=== PATIENT | female | born 1985 | race Caucasian/White ===

== ENCOUNTER → 2017-05-06 | Outpatient (CLI) | payer OTHER ==
[~2017-05-06] MED LIST: GLGKIT SQ; LEVO100T7 PO; LVMI PO; NVLGI SC
--- NOTE | 2017-05-06 12:14 | DIAGNOSTIC IMAGING REPORT ---
CHEST 2 VIEWS ROUTINE CLINICAL HISTORY: COARSE/CRACKLES L BASE dyspnea COMPARISON STUDY: 08/10/2013 FINDINGS: The bones soft tissues and hemidiaphragms are normal. The cardiomediastinal silhouette is normal. The lungs are clear. The pulmonary vasculature is normal. IMPRESSION: Negative chest. The above report was generated using voice recognition software. It may contain grammatical, syntax or spelling errors. Electronically signed by: Chadwick Hernandez M.D. 05/06/2017 12:13 PM Dictated Date/Time: 05/06/2017 12:13 PM
[2017-05-06 13:25] LABS: BASO % 0.6 %; BASO ABS # 0.03 K/uL (0-0.2); COMPLETE YES; EOS % 2.4 %; HEMATOCRIT 49.7 % (37-47); IG% 0.4 %; LYMPH % 34.5 %; LYMPH ABS # 1.71 K/uL (1.2-3.4); MEAN CELL VOLUME 96.9 fL (80-100); MEAN CORPUSCULAR HEMOGLOBIN 33.9 pg (25-34); MEAN PLATELET VOLUME 12.5 fL (7.4-10.4); MONO % 6.9 %; NEUT % 55.2 %; PLATELET COUNT 261 K/uL (130-400); RED BLOOD COUNT 5.13 M/uL (4.2-5.4); WHITE BLOOD COUNT 4.96 K/uL (4.8-10.8)
[2017-05-06 13:47] LABS: ESTIMATED AVERAGE GLUCOSE 275 mg/dl; HA1C FLAG Normal (Normal)
[2017-05-06 14:12] LABS: ALT/SGPT 21 U/L (12-78); AST/SGOT 8 U/L (15-37); BLOOD UREA NITROGEN 20 mg/dl (7-18); BUN/CREATININE RATIO 21.5 (10-20); CALCIUM 9.5 mg/dl (8.5-10.1); CARBON DIOXIDE 16 mmol/L (21-32); CHLORIDE 104 mmol/L (98-107); CHOLESTEROL 193 mg/dl (0-200); CREATININE 0.92 mg/dl (0.60-1.20); GLUCOSE 336 mg/dl (70-99); POTASSIUM 5.1 mmol/L (3.5-5.1); SODIUM 134 mmol/L (136-145); TRIGLYCERIDES 93 mg/dl (0-150); VERY LOW DENSITY LIPOPROT CALC 19 mg/dl
[2017-05-06 14:16] LABS: ALB/GLOB RATIO 1.2 (0.9-2); ALKALINE PHOSPHATASE 71 U/L (45-117); CHOLESTEROL/HDL RATIO 2.4; HDL CHOLESTEROL 79 mg/dl; LDL CHOLESTEROL CALCULATED 95 mg/dl
[2017-05-06 14:24] LABS: THYROID STIMULATING HORMONE 0.796 uIu/ml (0.300-4.500)
== END | disposition home or self-care (01) ==
LOC: C.RAD1850 11:30
PROVIDERS: ATTEND Nurse Practitioner
DX: E11.9 Type 2 diabetes mellitus without complications (principal); E03.9 Hypothyroidism, unspecified; F41.9 Anxiety disorder, unspecified; F32.9 Major depressive disorder, single episode, unspecified; G47.00 Insomnia, unspecified

== ENCOUNTER → 2017-05-11 | Outpatient (CLI) | payer OTHER ==
[2017-05-11 12:16] LABS: URINE APPEARANCE CLEAR (CLEAR); URINE BILIRUBIN NEG (NEG); URINE COLOR YELLOW; URINE NITRITE NEG (NEG); URINE SPECIFIC GRAVITY 1.012 (1.000-1.030); UROBILINOGEN NEG (NEG)
[2017-05-11 12:27] LABS: MANUAL MICROSCOPIC REQUIRED? NO; REVIEW REQ? NO
[2017-05-11 12:42] LABS: ALB/GLOB RATIO 1.2 (0.9-2); ALKALINE PHOSPHATASE 56 U/L (45-117); ALT/SGPT 19 U/L (12-78); AST/SGOT 11 U/L (15-37); BETA-HYDROXYBUTYRATE 1.33 mg/dL (0.2-2.81); BLOOD UREA NITROGEN 13 mg/dl (7-18); BUN/CREATININE RATIO 20.2 (10-20); CALCIUM 8.6 mg/dl (8.5-10.1); CARBON DIOXIDE 26 mmol/L (21-32); CHLORIDE 109 mmol/L (98-107); CREATININE 0.63 mg/dl (0.60-1.20); GLUCOSE 175 mg/dl (70-99); POTASSIUM 4.1 mmol/L (3.5-5.1); SODIUM 140 mmol/L (136-145)
--- NOTE | 2017-05-13 06:48 | CODING QUERY NO DIAGNOSIS ---
TREATMENT RENDERED WITHOUT A DIAGNOSIS To promote full compliance with coding requirements relating to patient care, physician participation is requested in all cases of engraver wood uncertainty. Please assist us with providing a diagnosis/symptom for the test(s) below: A diagnosis/symptom was not documented on your Order. A valid diagnosis/symptom is required to bill all insurances. Please remember that we are unable to code a diagnosis of rule out, probable, possible, questionable, or suspected. Tests that require a diagnosis: DOS 05/11 * CMP DIAGNOSIS: * Urinalysis DIAGNOSIS: * [id number] DIAGNOSIS: Provider Signature: Date: Thank you Rosy Dubon Health Information Management Once completed, please kindly fax back to [phone] For questions please call [phone]
== END | disposition home or self-care (01) ==
LOC: C.LAB1850 11:44
PROVIDERS: ATTEND Nurse Practitioner
DX: E10.65 Type 1 diabetes mellitus with hyperglycemia (principal); E10.10 Type 1 diabetes mellitus with ketoacidosis without coma

== ENCOUNTER → 2017-07-10 | Outpatient (CLI) | payer OTHER ==
[2017-07-10 18:01] LABS: ALT/SGPT 16 U/L (12-78); BLOOD UREA NITROGEN 12 mg/dl (7-18); BUN/CREATININE RATIO 16.8 (10-20); CALCIUM 9.1 mg/dl (8.5-10.1); CARBON DIOXIDE 23 mmol/L (21-32); CHLORIDE 108 mmol/L (98-107); CHOLESTEROL 175 mg/dl (0-200); CREATININE 0.71 mg/dl (0.60-1.20); GLUCOSE 111 mg/dl (70-99); SODIUM 141 mmol/L (136-145)
[2017-07-10 18:11] LABS: ALB/GLOB RATIO 1.2 (0.9-2); ALKALINE PHOSPHATASE 56 U/L (45-117); AST/SGOT 13 U/L (15-37); CHOLESTEROL/HDL RATIO 2.4; HDL CHOLESTEROL 73 mg/dl; LDL CHOLESTEROL CALCULATED 83 mg/dl; THYROID STIMULATING HORMONE 0.043 uIu/ml (0.300-4.500); TRIGLYCERIDES 93 mg/dl (0-150); VERY LOW DENSITY LIPOPROT CALC 19 mg/dl
[2017-07-11 07:23] LABS: ESTIMATED AVERAGE GLUCOSE 160 mg/dl; HA1C FLAG Normal (Normal)
== END | disposition home or self-care (01) ==
LOC: C.LAB1850 17:04
PROVIDERS: ATTEND Nurse Practitioner Adult Health
DX: E11.9 Type 2 diabetes mellitus without complications (principal); E03.9 Hypothyroidism, unspecified

== ENCOUNTER 2017-11-11 13:28 | Inpatient (IN) | payer OTHER ==
[~2017-11-11] VITALS: Ht 162.6 cm; Wt 47.3 kg
[2017-11-11] MEDS ORDERED: SERT-234 PO (14:14)
[2017-11-11] MEDS ORDERED: NVLRB SC (14:15)
[2017-11-11] MEDS ORDERED: SODIUM CHLORIDE 0.9% 1000ML 1,000 ML IV STA (14:20)
[2017-11-11 14:41] LABS: BASO % 0.2 %; BASO ABS # 0.01 K/uL (0-0.2); EOS % 3.7 %; EOS ABS # 0.17 K/uL (0-0.5); HEMATOCRIT 46.4 % (37-47); HEMOGLOBIN 16.6 g/dL (12.0-16.0); IG# 0.02 K/uL (0.00-0.02); LYMPH % 33.3 %; LYMPH ABS # 1.55 K/uL (1.2-3.4); MEAN CELL VOLUME 99.1 fL (80-100); MEAN CORPUSCULAR HEMOGLOBIN 35.5 pg (25-34); MEAN CORPUSCULAR HGB CONC 35.8 g/dl (32-36); MEAN PLATELET VOLUME 11.6 fL (7.4-10.4); MONO % 8.6 %; NEUT % 53.8 %; PLATELET COUNT 208 K/uL (130-400); RED CELL DISTRIBUTION WIDTH CV 12.7 % (11.5-14.5); RED CELL DISTRIBUTION WIDTH SD 45.8 fL (36.4-46.3); WHITE BLOOD COUNT 4.65 K/uL (4.8-10.8)
[2017-11-11 15:11] LABS: ALBUMIN 3.8 gm/dl (3.4-5.0); CALCIUM 8.7 mg/dl (8.5-10.1); CREATININE 1.03 mg/dl (0.60-1.20); POTASSIUM 3.9 mmol/L (3.5-5.1)
[2017-11-11 15:16] LABS: TOTAL PROTEIN 7.7 gm/dl (6.4-8.2)
--- NOTE | 2017-11-11 15:20 | EMERGENCY ROOM VISIT NOTE ---
History Report prepared by Amanda: Thong Aldrich Under the Supervision of: Dr. Jass Piña M.D. First contact with patient: 13:50 Chief Complaint: MENTAL HEALTH EVALUATION Stated Complaint: SUICIADAL IDEATION, PSYCHOMOTOR,NETARDATION, DEP History of Present Illness The patient is a 32 year old female who presents to the Emergency Room with complaints of suicidal ideation. She denies having a plan and states it is appealing but denies follow through due to her family. She states she was fired and that her grandma recently which has triggered her worsening depression for the past 2 months. She is currently taking Zoloft that was prescribed by her logistics coordinator. She states she overdosed on insulin 5 years ago in an attempt to end her life. She denies fevers, chills, cough, congestion, and nausea, and vomiting. She states limited dietary intake. Of note, she does not currently follow up with a psychiatrist. Source of History: patient Onset: prior to arrival Position: other (suicidal ideation) Timing: worsening (worsening depression for the past 2 months) Associated Symptoms: No fevers, No chills, No cough Note: Patient complains of limited dietary intake. Patient denies congestion. Review of Systems See HPI for pertinent positives and negatives. A total of ten systems were reviewed and were otherwise negative. Past Medical & Surgical Medical Problems: (1) Anxiety disorder NOS (2) DIAB CHILO WO COMPL, TYPE I [JUVENILE TYPE], NOT UNCNTRLD (3) DIAB W KETOACIDOSIS, TYPE I [JUVENILE TYPE], UNCONTROLLED (4) Hypothyroidism (5) Major depressive disorder (6) Substance abuse (7) URIN TRACT INFECTION NOS Family History FH: cancer Hypertension Kidney disease or stones Social History Smoking Status: Former Smoker (She states she quit 2 weeks ago) Alcohol Use: none Drug Use: none (marijuana) Marital Status: in relationship Housing Status: lives with significant other Occupation Status: unemployed Current/Historical Medications Scheduled Insulin Human Regular (Novolin R), 10 UNITS SC BID Levothyroxine Sodium (Levothyroxine Sodium), 100 MCG PO 6XWK Sertraline (Zoloft), 100 MG PO DAILY Allergies Coded Allergies: Sulfamethoxazole w/Trimethoprim (Unverified Allergy, Unknown, swelling, ) Insulin Lispro (Verified Adverse Reaction, Intermediate, MUSCLE WASTING, ) Phenol (Unverified Adverse Reaction, Unknown, Muscle Wasting, 06/28/16) Physical Exam Vital Signs Date Time Temp Pulse Resp B/P (MAP) Pulse Ox O2 Delivery O2 Flow Rate FiO2 11/11/17 13:37 36.4 95 16 141/93 99 Room Air Physical Exam GENERAL: Awake, alert, well-appearing, in no distress. Depressed affect. Positive suicidal ideation. HENT: Normocephalic, atraumatic. Dry mucous membranes. EYES: Normal conjunctiva. Sclera non-icteric. NECK: Supple. No nuchal rigidity. FROM. No JVD. RESPIRATORY: Clear to auscultation. CARDIAC: Regular rate, normal rhythm. Extremities warm and well perfused. Pulses equal. ABDOMEN: Soft, non-distended. No tenderness to palpation. No rebound or guarding. No masses. RECTAL: Deferred. MUSCULOSKELETAL: Chest examination reveals no tenderness. The back is symmetrical on inspection without obvious abnormality. There is no CVA tenderness to palpation. No joint edema. LOWER EXTREMITIES: Calves are equal size bilaterally and non-tender. No edema. No discoloration. NEURO: Normal sensorium. No sensory or motor deficits noted. SKIN: No rash or jaundice noted. Medical Decision & Procedures Laboratory Results 11/11/17 14:23 Red Blood Count 4.68, Mean Corpuscular Volume 99.1, Mean Corpuscular Hemoglobin 35.5, Mean Corpuscular Hemoglobin Concent 35.8, Mean Platelet Volume 11.6, Neutrophils (%) (Auto) 53.8, Lymphocytes (%) (Auto) 33.3, Monocytes (%) (Auto) 8.6, Eosinophils (%) (Auto) 3.7, Basophils (%) (Auto) 0.2, Neutrophils # (Auto) 2.50, Lymphocytes # (Auto) 1.55, Monocytes # (Auto) 0.40, Eosinophils # (Auto) 0.17, Basophils # (Auto) 0.01 11/11/17 14:23 Test 11/11/17 14:23 11/11/17 14:35 White Blood Count 4.65 K/uL (4.8-10.8) Red Blood Count 4.68 M/uL (4.2-5.4) Hemoglobin 16.6 g/dL (12.0-16.0) Hematocrit 46.4 % (37-47) Mean Corpuscular Volume 99.1 fL (80-100) Mean Corpuscular Hemoglobin 35.5 pg (25-34) Mean Corpuscular Hemoglobin Concent 35.8 g/dl (32-36) Platelet Count 208 K/uL (130-400) Mean Platelet Volume 11.6 fL (7.4-10.4) Neutrophils (%) (Auto) 53.8 % Lymphocytes (%) (Auto) 33.3 % Monocytes (%) (Auto) 8.6 % Eosinophils (%) (Auto) 3.7 % Basophils (%) (Auto) 0.2 % Neutrophils # (Auto) 2.50 K/uL (1.4-6.5) Lymphocytes # (Auto) 1.55 K/uL (1.2-3.4) Monocytes # (Auto) 0.40 K/uL (0.11-0.59) Eosinophils # (Auto) 0.17 K/uL (0-0.5) Basophils # (Auto) 0.01 K/uL (0-0.2) RDW Standard Deviation 45.8 fL (36.4-46.3) RDW Coefficient of Variation 12.7 % (11.5-14.5) Immature Granulocyte % (Auto) 0.4 % Immature Granulocyte # (Auto) 0.02 K/uL (0.00-0.02) Anion Gap 6.0 mmol/L (3-11) Est Creatinine Clear Calc Drug Dose 59.6 ml/min Estimated GFR () 84.5 Estimated GFR (Non- 72.9 BUN/Creatinine Ratio 12.7 (10-20) Calcium Level 8.7 mg/dl (8.5-10.1) Total Bilirubin 0.5 mg/dl (0.2-1) Direct Bilirubin mg/dl (0-0.2) Aspartate Amino Transf (AST/SGOT) 11 U/L (15-37) Alanine Aminotransferase (ALT/SGPT) 24 U/L (12-78) Alkaline Phosphatase 91 U/L (45-117) Total Protein 7.7 gm/dl (6.4-8.2) Albumin 3.8 gm/dl (3.4-5.0) Globulin 3.9 gm/dl (2.5-4.0) Albumin/Globulin Ratio 1.0 (0.9-2) Thyroid Stimulating Hormone (TSH) 4.360 uIu/ml (0.300-4.500) Chemistry Specimen Hemolysis Ethyl Alcohol mg/dL < 3.0 mg/dl (0-3) Urine Color YELLOW Urine Appearance CLEAR (CLEAR) Urine pH 5.0 (4.5-7.5) Urine Specific [place] > 1.045 (1.000-1.030) Urine Protein NEG (NEG) Urine Glucose (UA) 3+ (NEG) Urine Ketones NEG (NEG) Urine Occult Blood NEG (NEG) Urine Nitrite NEG (NEG) Urine Bilirubin NEG (NEG) Urine Urobilinogen NEG (NEG) Urine Leukocyte Esterase NEG (NEG) Urine Test NEG (NEG) Urine Opiates Screen NEG (NEG) Urine Methadone, Qualitative NEG (NEG) Urine Barbiturates NEG (NEG) Urine Phencyclidine (PCP) Level NEG (NEG) Ur Amphetamine/Methamphetamine NEG (NEG) MDMA (Ecstasy) Screen NEG (NEG) Urine Benzodiazepines Screen NEG (NEG) Urine Cocaine Metabolite NEG (NEG) Urine Marijuana (THC) NEG (NEG) Laboratory results reviewed by me Medications Administered Medications (Trade) Dose Ordered Sig/Bessy Route Start Time Stop Time Status Last Admin Dose Admin Sodium Chloride 1,000 ml @ 999 mls/hr Q1H1M STAT IV 11/11/17 14:20 11/11/17 15:20 DC 11/11/17 14:44 999 MLS/HR ED Course 1350: The patient was evaluated in room A7. A complete history and physical exam was performed. 1550: Upon reexamination, the patient was doing well. I discussed the test results and treatment plan with the case supervisor. The patient will be evaluated for further management. Medical Decision I reviewed the patient's past medical history, medications, and the nursing notes as described above. The patient's presentation and history were concerning for etiologies such as mood disorder, infection, hypoglycemia, electrolyte abnormalities, cardiac sources, intracerebral event, toxicologic, neurologic, as well as others were entertained. The patient is a 32-year-old woman with a past medical history of type 1 diabetes, depression and prior suicide attempt who presents to emergency department with worsening depression and suicidal ideation over the past couple months in the setting of losing her job, breaking up with her partner, and the of her grandmother per hpi. On arrival the patient has a depressed affect but is in no acute distress, afebrile with stable vital signs. Endorses SI but denies plan. Interested in getting help and inpatient psych admission. FSBG elevated on arrival however the patient's asymptomatic. Subsequent BMP with no anionic gap thus no DKA. Thus, the patient was medically cleared. She was given IV fluid hydration with subsequent decrease in her glucose from 469 to 267 with IV fluids alone. Sliding-scale insulin initially ordered however patient was accepted to [address] [place] [address] with plan for pharmacy consultation for insulin regimen. 201 signed. Medication Reconcilliation Current Medication List: was personally reviewed by me Blood Pressure Screening Patient's blood pressure: Elevated blood pressure Blood pressure disposition: Elevated BP felt to be situational Impression Primary Impression: Depression Additional Impression: Suicidal ideation Scribe Attestation The scribe's documentation has been prepared under my direction and personally reviewed by me in its entirety. I confirm that the note above accurately reflects all work, treatment, procedures, and medical decision making performed by me. Departure Information Referrals Anita Sevilla M.D. (PCP) Patient Instructions [facility] Problem Qualifiers
[2017-11-11] MEDS ORDERED: INSULIN ASPART 100 UNITS/ML 3 ML PEN SC STA (15:44)
[2017-11-11] MEDS ORDERED: NURSING VERBAL MED ORDER ONE (17:00)
[2017-11-11 17:12] VITALS: O2SAT 99
[2017-11-11] MEDS ORDERED: ALUMINUM/MAGNESIUM SUSP 30 ML UDC PO PRN (17:30)
[2017-11-11] MEDS ORDERED: hydrOXYzine HCL 25 MG TAB PO PRN ×2 (17:30)
[2017-11-11] MEDS ORDERED: SODIUM CHLORIDE 0.65% NA SOLN 45 ML (OCEAN) PRN (17:30)
[2017-11-11] MEDS ORDERED: MAGNESIUM HYDROXIDE SUSP 30 ML UDC PO PRN (17:30)
[2017-11-11] MEDS ORDERED: BISMUTH SUBSALICYLATE PER ML OMNICELL CHARGE PO PRN (17:30)
[2017-11-11] MEDS ORDERED: ACETAMINOPHEN 325 MG TAB PO PRN (17:30)
[2017-11-11 17:38] VITALS: BP 110/75; PULSE 65; TEMP 36.4; BMI 17.9
[2017-11-11] MEDS ORDERED: INSULIN HUMAN REGULAR SC SCH (17:45)
[2017-11-11] MEDS ORDERED: PHARMACY GLYCEMIC MGMT CONSULT PRN (17:46)
[2017-11-11] MEDS ORDERED: GLUCOSE 40% GEL 15 GM TUBE PO PRN (18:00)
[2017-11-11] MEDS ORDERED: GLUCOSE 10 TABS/TUBE PO PRN (18:00)
[2017-11-11] MEDS ORDERED: DEXTROSE 50% 50 ML SYR IV PRN (18:00)
[2017-11-11] MEDS ORDERED: INSULIN ASPART 100 UNITS/ML 3 ML PEN SC ONE (18:00)
[2017-11-11] MEDS ORDERED: GLUCAGON FOR INJ 1 MG VIAL SQ PRN (18:00)
[2017-11-11] MEDS ORDERED: INFLUENZA VIRUS QUAD VACCINE 0.5 ML SYR IM. ONE (20:00)
[2017-11-11] MEDS ORDERED: INFLUENZA ADMINISTRATION CHARGE ONE (20:00)
[2017-11-11] MEDS: INSULIN ASPART 100 UNITS/ML 3 ML PEN SC SCH (22:00)
[2017-11-11] MEDS ORDERED: INSULIN GLARGINE SOLOSTAR 100 UNITS/ML 3 ML PEN SC ONE (22:30)
[2017-11-12] MEDS: INSULIN ASPART 100 UNITS/ML 3 ML PEN SC SCH ×6 (00:22→21:41)
[2017-11-12 06:33] VITALS: BP_SYST 101; BP_SYST 116; BP_DIAS 65; BP_DIAS 82; PULSE 71; PULSE 80; TEMP 36.5
[2017-11-12] MEDS ORDERED: LEVOTHYROXINE 100 MCG TAB PO SCH (08:00)
[2017-11-12] MEDS: LEVOTHYROXINE 100 MCG TAB PO SCH (08:29)
[2017-11-12] MEDS: INSULIN GLARGINE SOLOSTAR 100 UNITS/ML 3 ML PEN SC SCH (08:55)
[2017-11-12] MEDS ORDERED: SERTRALINE HCL 100 MG TAB PO SCH (09:00)
--- NOTE | 2017-11-12 09:33 | Pharmacy Progress Note ---
Glycemic Control Intl Consult Date of Service Nov 12, 2017. Scope Glycemic Pharmacist consulted by Dr Powell on 11/11/17 for glycemic control and to write orders per [facility] inpatient glycemic control protocol Objective Weight (Kilograms): 47.300 Accuchecks BSG (last 24hrs): Test 11/11/17 14:10 11/11/17 14:12 11/11/17 14:23 11/11/17 15:57 Bedside Glucose 469 mg/dl (70-90) 485 mg/dl (70-90) 267 mg/dl (70-90) Random Glucose 378 mg/dl (70-99) Test 11/11/17 18:17 11/11/17 20:26 11/11/17 20:51 11/11/17 22:08 Bedside Glucose 224 mg/dl (70-90) 50 mg/dl (70-90) 86 mg/dl (70-90) 201 mg/dl (70-90) Test 11/12/17 00:07 11/12/17 04:21 11/12/17 07:43 Bedside Glucose 165 mg/dl (70-90) 153 mg/dl (70-90) 193 mg/dl (70-90) Laboratory Data (last 24hrs) Test 11/11/17 14:23 Anion Gap 6.0 mmol/L BUN/Creatinine Ratio 12.7 Blood Urea Nitrogen 13 mg/dl Creatinine 1.03 mg/dl Potassium Level 3.9 mmol/L Sodium Level 132 mmol/L White Blood Count 4.65 K/uL Red Blood Count 4.68 M/uL Hemoglobin 16.6 g/dL Hematocrit 46.4 % Mean Corpuscular Volume 99.1 fL Mean Corpuscular Hemoglobin 35.5 pg Mean Corpuscular Hemoglobin Concent 35.8 g/dl Platelet Count 208 K/uL Mean Platelet Volume 11.6 fL Neutrophils (%) (Auto) 53.8 % Lymphocytes (%) (Auto) 33.3 % Monocytes (%) (Auto) 8.6 % Eosinophils (%) (Auto) 3.7 % Basophils (%) (Auto) 0.2 % Neutrophils # (Auto) 2.50 K/uL Lymphocytes # (Auto) 1.55 K/uL Monocytes # (Auto) 0.40 K/uL Eosinophils # (Auto) 0.17 K/uL Basophils # (Auto) 0.01 K/uL Recent Pertinent Medications Outpatient Anti-diabetic Regimen: * Novolin R 10 units BID (or Lantus 15 units SQ AM when pt can afford it) with Sliding scale Regular insulin * A1c = 7.2 % 07/10/17 The patient is currently receiving: * Basal insulin: Lantus 8 units x 1 dose last night * Correctional Insulin: Novolog Correction per scale ACHS Goal Range: Low 120 mg/dL - High 160 mg/dL Correction Factor: 50 mg/dL/unit * Prandial insulin: Per carb ratio of 1 unit per 17 grams CHO consumed Risk Factors for Insulin Resistance: * Diet: Type 2 DM Assessment & Plan ASSESSMENT: * 32 year old female type 1 diabetic, well controlled per A1c in June. Needs updated A1c, will order with AM labs * Admitted to [facility] for suicidal ideation * Admitted with hyperglycemia, then had an episode of hypoglycemia last night, treated with OJ and snack * Fasting AM BSG 193mg/dl this morning, will begin Lantus based on BSG once daily in the morning and continue CF and CR and titrate to goal PLAN FOR INPATIENT GLYCEMIC CONTROL: * Basal insulin with LANTUS SQ daily * 0 units for BSG < 80mg/dl * 10 units for BSG 80-180mg/dl * 14 units for BSG > 180mg/dl * Correctional Insulin with NOVOLOG per scale ACHS or Q6hr while NPO * Goal Range: Low 120 mg/dL - High 160 mg/dL * Correction Factor: 50 mg/dL/unit * Nutritional / Prandial insulin per carb ratio of 1 unit per 17 grams CHO consumed * Please note that the plan above was derived based on current level of insulin resistance and hospital stress. These recommendations are appropriate for inpatient admission only. Plan of care upon discharge will need to be reassessed to avoid potential outpatient hypo/hyperglycemia. Thank you.
--- NOTE | 2017-11-12 10:06 | Psychiatric History & Physical ---
History Date of Service Nov 12, 2017. Identifying Data Isabella Yoon is a 32-year-old female admitted on Nov 11, 2017 at 17:01 who currently lives in [place] with 3 roommates. Isabella Yoon was admitted on a 201 voluntary commitment. Patient is admitted from home. The patient was brought to the ED by the self transport. Information provided by the patient is considered to be reliable. Chief Complaint "Where to start...I've just been overwhelmed and feeling like I'm drowning in depression". History of Present Illness Isabella Yoon is a 32-year-old female admitted to [address] [place] [address] on a voluntary commitment following worsening depression with SI for the past 2 months. Pt notes several recent stressors including her grandmother's in June 2017 and her boyfriend of 3.5 years leaving her in August 2017. Pt states she started to feel worsening of depression in mid-September which worsened when she was fired from her job 1.5 weeks ago due to not showing up for work due to decreased mood. Pt states she has struggled with depression " on and off for my entire adult life". She has had several inpatient hospitalizations in the past for depression and SI at [facility], [facility], [place], and [facility]. Her most recent admission was at [place] in 2013 following depression and a suicide attempt in which she attempted to overdose on her insulin. She was been taking Zoloft 100mg regularly for the past 9 months, currently prescribed by her automatic developer as her mood was concerning. Pt is a Type-1 diabetic and also has been diagnosed with hypothyroidism. She reports recent weight loss due to nausea and abdominal pain with ingestion of food. Pt reports depressive symptoms including low mood, isolative behavior, decreased functioning in regard to attending to hygiene, reduced appetite resulting in >20lb weight loss in the last 2 months, sleep difficulties with frequent awakening, increased desire to remain in bed, decreased concentration, hopelessness, and guilt. Pt states she has had SI for the past few months, and states "suicide is appealing, but I haven't thought about an actual plan". Pt states her concern for her family has prevented her from acting on these thoughts. Pt also reports ongoing anxiety specifically in relation to social interactions. She reports feeling uncomfortable with situations outside of her home or group of roommates. She reports 2-3 panic attacks in the last months in which "it feels like is imminent and I worry about what that will mean for me and my family". Pt denies current outpatient psychiatric treatment, but was seen a few years ago at [facility] for both medication management and therapy. Pt reports trials of Celexa, Wellbutrin, Klonopin, Abilify, and Lexapro. Pt feels the Lexapro has worked the best and recalls taking 10mg daily for about 1 year. At some point Abilify was added to the regimen which she reports was also beneficial to her mood. Pt denies HI, SIB aside from unintentionally picking skin, demetrius, paranoia, OCD, PTSD, eating disorder, and other psychosis. Past Psychiatric History Current OP Treatment: no current treatment Prior OP Treatment: psychiatrist ([facility]), therapist ([facility]) Prior Psych Hospitalizations: [facility], other ([facility], [facility], [facility], and [place]) Access to a Gun: No Suicide Attempts: Yes (2013 - attempted insulin overdose) Past Medication Trials Celexa - increased SI Lexapro - worked well; x1 year Abilify - adjunct to Lexapro; worked well Wellbutrin Klonopin Past Medical/Surgical History History of Concussion/Seizure: Yes (diabetic seizures with hypoglycemia; last seizure reported was several years ago) (1) Type 1 diabetes mellitus Allergies Allergies: Coded Allergies: Sulfamethoxazole w/Trimethoprim (Unverified Allergy, Unknown, swelling, ) Insulin Lispro (Verified Adverse Reaction, Intermediate, MUSCLE WASTING, ) Phenol (Unverified Adverse Reaction, Unknown, Muscle Wasting, 06/28/16) Home Medications Scheduled Insulin Human Regular (Novolin R), 10 UNITS SC BID Levothyroxine Sodium (Levothyroxine Sodium), 100 MCG PO 6XWK Sertraline (Zoloft), 100 MG PO DAILY Family History FH: cancer Hypertension Kidney disease or stones History of Suicide: Yes (Grandmother's brother) History of Substance Abuse: Yes (brother) Psychiatric History: Yes (Mother and Brother - anxiety and depression; Father - depression) Alcohol Use Alcohol Use In Past 12 Months: No AUDIT Total Score: 0 Smoking Use Smoking Status: Former Smoker quit 2 weeks ago; previous 1ppd x 10 years Substance History Pt reports marijuana use 2-3 times a month Personal History Lives in: [place], [place] Childhood: Grew up in [place]. She reports 1 biological brother. Her mother and 2 young half-sisters remain in the area. Education: graduated college (BS: [employer]) Work History: Most recently worked in [employer]. Fired 1.5 weeks ago. Relationship History: never Children: none Spiritual Affiliation: "spiritual" Legal History: none Psychological Trauma History: Significant Loss (grandmother, father's from cancer) Review of Systems Psych: denies symptoms other than stated above Constitutional: denied Cardiovascular: reports tachycardia with anxiety Respiratory: cough, believed due to smoking history GI: reports nausea, indigestion, and abdominal pain with food intake Neurologic: denied Remainder of 10 body systems also reviewed and denied other than noted above. Examination Physical Examination A physical exam was performed in the ER prior to admission to the unit by Jass Piña M.D. I accept that physical as correct/medical clearance for the inpatient physical exam. Vital Signs Vital Signs Past 12 Hours Date Time Temp Pulse Resp B/P (MAP) Pulse Ox O2 Delivery O2 Flow Rate FiO2 11/12/17 06:33 36.5 71 16 101/65 80 116/82 Laboratory Results Last 24 Hours Test 11/11/17 14:10 11/11/17 14:12 11/11/17 14:23 11/11/17 14:35 Bedside Glucose 469 mg/dl 485 mg/dl White Blood Count 4.65 K/uL Red Blood Count 4.68 M/uL Hemoglobin 16.6 g/dL Hematocrit 46.4 % Mean Corpuscular Volume 99.1 fL Mean Corpuscular Hemoglobin 35.5 pg Mean Corpuscular Hemoglobin Concent 35.8 g/dl Platelet Count 208 K/uL Mean Platelet Volume 11.6 fL Neutrophils (%) (Auto) 53.8 % Lymphocytes (%) (Auto) 33.3 % Monocytes (%) (Auto) 8.6 % Eosinophils (%) (Auto) 3.7 % Basophils (%) (Auto) 0.2 % Neutrophils # (Auto) 2.50 K/uL Lymphocytes # (Auto) 1.55 K/uL Monocytes # (Auto) 0.40 K/uL Eosinophils # (Auto) 0.17 K/uL Basophils # (Auto) 0.01 K/uL RDW Standard Deviation 45.8 fL RDW Coefficient of Variation 12.7 % Immature Granulocyte % (Auto) 0.4 % Immature Granulocyte # (Auto) 0.02 K/uL Sodium Level 132 mmol/L Potassium Level 3.9 mmol/L Chloride Level 96 mmol/L Carbon Dioxide Level 30 mmol/L Anion Gap 6.0 mmol/L Blood Urea Nitrogen 13 mg/dl Creatinine 1.03 mg/dl Est Creatinine Clear Calc Drug Dose 59.6 ml/min Estimated GFR () 84.5 Estimated GFR (Non- 72.9 BUN/Creatinine Ratio 12.7 Random Glucose 378 mg/dl Calcium Level 8.7 mg/dl Total Bilirubin 0.5 mg/dl Direct Bilirubin mg/dl Aspartate Amino Transf (AST/SGOT) 11 U/L Alanine Aminotransferase (ALT/SGPT) 24 U/L Alkaline Phosphatase 91 U/L Total Protein 7.7 gm/dl Albumin 3.8 gm/dl Globulin 3.9 gm/dl Albumin/Globulin Ratio 1.0 Thyroid Stimulating Hormone (TSH) 4.360 uIu/ml Chemistry Specimen Hemolysis Ethyl Alcohol mg/dL < 3.0 mg/dl Urine Color YELLOW Urine Appearance CLEAR Urine pH 5.0 Urine Specific [place] > 1.045 Urine Protein NEG Urine Glucose (UA) 3+ Urine Ketones NEG Urine Occult Blood NEG Urine Nitrite NEG Urine Bilirubin NEG Urine Urobilinogen NEG Urine Leukocyte Esterase NEG Urine Test NEG Urine Opiates Screen NEG Urine Methadone, Qualitative NEG Urine Barbiturates NEG Urine Phencyclidine (PCP) Level NEG Ur Amphetamine/Methamphetamine NEG MDMA (Ecstasy) Screen NEG Urine Benzodiazepines Screen NEG Urine Cocaine Metabolite NEG Urine Marijuana (THC) NEG Test 11/11/17 15:57 11/11/17 18:17 11/11/17 20:26 11/11/17 20:51 Bedside Glucose 267 mg/dl 224 mg/dl 50 mg/dl 86 mg/dl Test 11/11/17 22:08 11/12/17 00:07 11/12/17 04:21 11/12/17 07:43 Bedside Glucose 201 mg/dl 165 mg/dl 153 mg/dl 193 mg/dl Mental Examination During interview pt is: alert and oriented, cooperative Appearance: disheveled (unkempt hair, t-shirt inside out) Eye contact is: fair Motor behavior is: steady gait & station, no abnormal motor movements Speech: other (Normal in rate and rhythm, soft, hesitant) Affect: mood congruent, depressed, tearful, anxious Mood is: depressed, anxious Thought process: goal directed, clear, coherent Thought content: reality based without delusions Suicidal thought are: present ("suicide sounds appealing"), Plan: denied, Intent: denied Homicidal thoughts are: denied Hallucinations: denies auditory, denies visual Cognition: memory grossly intact, attention grossly intact, language grossly intact Intelligence estimated to be: average Insight: limited Judgement: limited Impression / Recommendations Impression 32-year-old female presenting with worsening depression and SI. Pt notes depression has worsened with recent stressor including the end of a long- term relationship, her grandmother's , and her recent job loss. Pt denies current plan or intent and states she typically seeks help before it reaches that level of severity. Pt has a history of suicide attempt by overdose on insulin in the past. Currently tolerating Zoloft 100mg daily for the past 9 months. Also has done well with Lexapro 10mg for 1 year, with and without Abilify adjunct. Inventory Assets Strengths: willingness for treatment, family supports Needs: mitigate risk factors, assistance dealing with recent stressors. Risk Factors Assessment : Yes /single/: Yes Access to guns: No Health problems: Yes Mental Health Diagnoses: Yes Previous attempt: Yes Previous psychiatric stay: Yes Hopelessness: Yes Smoker: No (recently quit) Protective Factors Assessment Rastafarian beliefs: Yes : No Responsible for young children: No Employed: No Stable relationships: No Supportive family: Yes Recommendations (1) Major depressive disorder, recurrent episode 2 - - Encourage participation in group programming including recreation therapy and group therapy. - Coordination with previous outpatient providers - Involvement of identified supports in family meeting (2) Suicidal ideation 2 - Suicide safety checks q15 minutes - Encourage engagement in group programming with attention to appropriate coping skills. (3) Type 1 diabetes mellitus 2/ - Diabetic pharmacy consult and management due to diagnosis and inconsistent random blood glucose readings on the unit. (4) Hypothyroidism 2/ - TSH checked prior to admission in ED. Level as of 11/11 = 4.360. - Pt reports regular follow up with endocrinology (5) Anxiety disorder NOS 2/ - Reports panic attacks 2-3 times a month along with anxiety with social interactions. - See depression treatment above. CPT Code Initial Hospital Care: 93476 Problem Qualifiers (1) Major depressive disorder, recurrent episode: Major depression episode severity: severe Psychotic features: without psychotic features Qualified Codes: F33.2 - Major depressive disorder, recurrent severe without psychotic features
--- NOTE | 2017-11-12 10:21 | Psychiatric History & Physical ---
History Date of Service Nov 12, 2017. Identifying Data Isabella Yoon is a 32-year-old female admitted on Nov 11, 2017 at 17:01 who currently lives in [place] with 3 roommates. Isabella Yoon was admitted on a 201 voluntary commitment. Patient is admitted from home. The patient was brought to the ED by the self transport. Information provided by the patient is considered to be reliable. Chief Complaint "Where to start...I've just been overwhelmed and feeling like I'm drowning in depression". History of Present Illness Isabella Yoon is a 32-year-old female admitted to [address] [place] [address] on a voluntary commitment following worsening depression with SI for the past 2 months. Pt notes several recent stressors including her grandmother's in June 2017 and her boyfriend of 3.5 years leaving her in August 2017. Pt states she started to feel worsening of depression in mid-September which worsened when she was fired from her job 1.5 weeks ago due to not showing up for work due to decreased mood. Pt states she has struggled with depression " on and off for my entire adult life". She has had several inpatient hospitalizations in the past for depression and SI at [facility], [facility], [place], and [facility]. Her most recent admission was at [place] in 2013 following depression and a suicide attempt in which she attempted to overdose on her insulin. She was been taking Zoloft 100mg regularly for the past 9 months, currently prescribed by her adoption services manager as her mood was concerning. Pt is a Type-1 diabetic and also has been diagnosed with hypothyroidism. She reports recent weight loss due to nausea and abdominal pain with ingestion of food. Pt reports depressive symptoms including low mood, isolative behavior, decreased functioning in regard to attending to hygiene, reduced appetite resulting in >20lb weight loss in the last 2 months, sleep difficulties with frequent awakening, increased desire to remain in bed, decreased concentration, hopelessness, and guilt. Pt states she has had SI for the past few months, and states "suicide is appealing, but I haven't thought about an actual plan". Pt states her concern for her family has prevented her from acting on these thoughts. Pt also reports ongoing anxiety specifically in relation to social interactions. She reports feeling uncomfortable with situations outside of her home or group of roommates. She reports 2-3 panic attacks in the last months in which "it feels like is imminent and I worry about what that will mean for me and my family". Pt denies current outpatient psychiatric treatment, but was seen a few years ago at [facility] for both medication management and therapy. Pt reports trials of Celexa, Wellbutrin, Klonopin, Abilify, and Lexapro. Pt feels the Lexapro has worked the best and recalls taking 10mg daily for about 1 year. At some point Abilify was added to the regimen which she reports was also beneficial to her mood. Pt denies HI, SIB aside from unintentionally picking skin, demetrius, paranoia, OCD, PTSD, eating disorder, and other psychosis. Past Psychiatric History Current OP Treatment: no current treatment Prior OP Treatment: psychiatrist ([facility]), therapist ([facility]) Prior Psych Hospitalizations: [facility], other ([facility], [facility], [facility], and [place]) Access to a Gun: No Suicide Attempts: Yes (2013 - attempted insulin overdose) Past Medication Trials Celexa - increased SI Lexapro - worked well; x1 year Abilify - adjunct to Lexapro; worked well Wellbutrin Klonopin Past Medical/Surgical History (1) DIAB CHILO WO COMPL, TYPE I [JUVENILE TYPE], NOT UNCNTRLD Allergies Allergies: Coded Allergies: Sulfamethoxazole w/Trimethoprim (Unverified Allergy, Unknown, swelling, ) Insulin Lispro (Verified Adverse Reaction, Intermediate, MUSCLE WASTING, ) Phenol (Unverified Adverse Reaction, Unknown, Muscle Wasting, 06/28/16) Home Medications Scheduled Insulin Human Regular (Novolin R), 10 UNITS SC BID Levothyroxine Sodium (Levothyroxine Sodium), 100 MCG PO 6XWK Sertraline (Zoloft), 100 MG PO DAILY Family History FH: cancer Hypertension Kidney disease or stones History of Suicide: Yes (grandmother's brother) History of Substance Abuse: Yes (brother) Psychiatric History: Yes (mother and brother with anxiety, father with depression) Alcohol Use Alcohol Use In Past 12 Months: No AUDIT Total Score: 0 Smoking Use Smoking Status: Former Smoker Substance History Pt reports marijuana use 2-3 times a month Personal History Lives in: [place], [place] Childhood: Grew up in [place], 1 boilogical brother. Her mother and 2 younger half sisters live locally. Education: graduated college (BS: [employer]) Work History: Most recently recently working in [employer], fired 1/5 weeks ago Relationship History: never Children: none Spiritual Affiliation: "spiritual" Legal History: none Psychological Trauma History: Significant Loss (grandmother, father's from cancer) Review of Systems Psych: denies symptoms other than stated above Constitutional: denied Cardiovascular: reports tachycardia with anxiety Respiratory: cough, believed due to smoking history GI: reports nausea, indigestion, and abdominal pain with food intake Neurologic: denied Remainder of 10 body systems also reviewed and denied other than noted above. Examination Physical Examination A physical exam was performed in the ER prior to admission to the unit by Dr. Piña. I accept that physical as correct/medical clearance for the inpatient physical exam. Vital Signs Vital Signs Past 12 Hours Date Time Temp Pulse Resp B/P (MAP) Pulse Ox O2 Delivery O2 Flow Rate FiO2 11/12/17 06:33 36.5 71 16 101/65 80 116/82 Laboratory Results Last 24 Hours Test 11/11/17 14:10 11/11/17 14:12 11/11/17 14:23 11/11/17 14:35 Bedside Glucose 469 mg/dl 485 mg/dl White Blood Count 4.65 K/uL Red Blood Count 4.68 M/uL Hemoglobin 16.6 g/dL Hematocrit 46.4 % Mean Corpuscular Volume 99.1 fL Mean Corpuscular Hemoglobin 35.5 pg Mean Corpuscular Hemoglobin Concent 35.8 g/dl Platelet Count 208 K/uL Mean Platelet Volume 11.6 fL Neutrophils (%) (Auto) 53.8 % Lymphocytes (%) (Auto) 33.3 % Monocytes (%) (Auto) 8.6 % Eosinophils (%) (Auto) 3.7 % Basophils (%) (Auto) 0.2 % Neutrophils # (Auto) 2.50 K/uL Lymphocytes # (Auto) 1.55 K/uL Monocytes # (Auto) 0.40 K/uL Eosinophils # (Auto) 0.17 K/uL Basophils # (Auto) 0.01 K/uL RDW Standard Deviation 45.8 fL RDW Coefficient of Variation 12.7 % Immature Granulocyte % (Auto) 0.4 % Immature Granulocyte # (Auto) 0.02 K/uL Sodium Level 132 mmol/L Potassium Level 3.9 mmol/L Chloride Level 96 mmol/L Carbon Dioxide Level 30 mmol/L Anion Gap 6.0 mmol/L Blood Urea Nitrogen 13 mg/dl Creatinine 1.03 mg/dl Est Creatinine Clear Calc Drug Dose 59.6 ml/min Estimated GFR () 84.5 Estimated GFR (Non- 72.9 BUN/Creatinine Ratio 12.7 Random Glucose 378 mg/dl Calcium Level 8.7 mg/dl Total Bilirubin 0.5 mg/dl Direct Bilirubin mg/dl Aspartate Amino Transf (AST/SGOT) 11 U/L Alanine Aminotransferase (ALT/SGPT) 24 U/L Alkaline Phosphatase 91 U/L Total Protein 7.7 gm/dl Albumin 3.8 gm/dl Globulin 3.9 gm/dl Albumin/Globulin Ratio 1.0 Thyroid Stimulating Hormone (TSH) 4.360 uIu/ml Chemistry Specimen Hemolysis Ethyl Alcohol mg/dL < 3.0 mg/dl Urine Color YELLOW Urine Appearance CLEAR Urine pH 5.0 Urine Specific [place] > 1.045 Urine Protein NEG Urine Glucose (UA) 3+ Urine Ketones NEG Urine Occult Blood NEG Urine Nitrite NEG Urine Bilirubin NEG Urine Urobilinogen NEG Urine Leukocyte Esterase NEG Urine Test NEG Urine Opiates Screen NEG Urine Methadone, Qualitative NEG Urine Barbiturates NEG Urine Phencyclidine (PCP) Level NEG Ur Amphetamine/Methamphetamine NEG MDMA (Ecstasy) Screen NEG Urine Benzodiazepines Screen NEG Urine Cocaine Metabolite NEG Urine Marijuana (THC) NEG Test 11/11/17 15:57 11/11/17 18:17 11/11/17 20:26 11/11/17 20:51 Bedside Glucose 267 mg/dl 224 mg/dl 50 mg/dl 86 mg/dl Test 11/11/17 22:08 11/12/17 00:07 11/12/17 04:21 11/12/17 07:43 Bedside Glucose 201 mg/dl 165 mg/dl 153 mg/dl 193 mg/dl Mental Examination During interview pt is: alert and oriented, cooperative Appearance: disheveled (unkempt hair, t-shirt inside out) Eye contact is: fair Motor behavior is: steady gait & station, no abnormal motor movements Speech: other (Normal in rate and rhythm, soft, hesitant) Affect: mood congruent, depressed, tearful, anxious Mood is: depressed, anxious Thought process: goal directed, clear, coherent Thought content: reality based without delusions Suicidal thought are: present ("suicide sounds appealing"), Plan: denied, Intent: denied Homicidal thoughts are: denied Hallucinations: denies auditory, denies visual Cognition: memory grossly intact, attention grossly intact, language grossly intact Intelligence estimated to be: average Insight: limited Judgement: limited Impression / Recommendations Impression 32-year-old female presenting with worsening depression and SI. Pt notes depression has worsened with recent stressor including the end of a long- term relationship, her grandmother's , and her recent job loss. Pt denies current plan or intent and states she typically seeks help before it reaches that level of severity. Pt has a history of suicide attempt by overdose on insulin in the past. Currently tolerating Zoloft 100mg daily for the past 9 months. Also has done well with Lexapro 10mg for 1 year, with and without Abilify adjunct. Inventory Assets Strengths: willingness for treatment, family supports Needs: mitigate risk factors, assistance dealing with recent stressors. Risk Factors Assessment : Yes /single/: Yes Higher / Fall in social status: No Access to guns: No Health problems: Yes Mental Health Diagnoses: Yes Previous attempt: Yes Family history of suicide: No Previous psychiatric stay: Yes Hopelessness: Yes Smoker: No (recently quit) Protective Factors Assessment Nondenominational beliefs: Yes : No Responsible for young children: No Employed: No Stable relationships: No Supportive family: Yes Good rapport with provider: No Recommendations (1) Major depressive disorder, recurrent episode 2/1 - Increase sertraline to 150mg daily. - Encourage participation in group programming including recreation therapy and group therapy. - Coordination with previous outpatient providers. - Involvement of identified supports in family meeting. (2) Suicidal ideation 2/1 - Suicide safety checks q15 minutes - Encourage engagement in group programming with attention to appropriate coping skills. (3) Anxiety disorder NOS 2/1 - Reports panic attacks 2-3 times a month along with anxiety with social interactions. - See depression treatment above. - Hydroxyzine prn. (4) Type 1 diabetes mellitus 2/1 - Diabetic pharmacy consult and management due to diagnosis and inconsistent random blood glucose readings on the unit. (5) Hypothyroidism 2/1 - TSH checked prior to admission in ED. Level as of 11/11 = 4.360. - Pt reports regular follow up with endocrinology CPT Code Initial Hospital Care: 58768 Problem Qualifiers (1) Major depressive disorder, recurrent episode: Major depression episode severity: severe Psychotic features: without psychotic features Qualified Codes: F33.2 - Major depressive disorder, recurrent severe without psychotic features
[2017-11-12 11:54] VITALS: BMI 17.9
[2017-11-12 13:27] VITALS: BMI 17.9
[2017-11-12 16:04] VITALS: BMI 17.9
[2017-11-13 06:36] VITALS: BP_SYST 120; BP_SYST 123; BP_DIAS 73; BP_DIAS 85; PULSE 73; PULSE 88; TEMP 36.8
[2017-11-13] MEDS: LEVOTHYROXINE 100 MCG TAB PO SCH (07:49)
[2017-11-13] MEDS: SERTRALINE HCL 100 MG TAB PO SCH (08:43)
[2017-11-13] MEDS: INSULIN ASPART 100 UNITS/ML 3 ML PEN SC SCH ×4 (09:03→20:54)
[2017-11-13] MEDS: INSULIN GLARGINE SOLOSTAR 100 UNITS/ML 3 ML PEN SC SCH (09:04)
--- NOTE | 2017-11-13 09:15 | Pharmacy Progress Note ---
Glycemic Control Progress Note Date of Service Nov 13, 2017. Scope Glycemic Pharmacist consulted for glycemic control to write orders per [facility] inpatient glycemic control protocol. Objective Accuchecks BSG (last 24hrs): Test 11/12/17 12:06 11/12/17 17:13 11/12/17 21:40 11/13/17 07:43 Bedside Glucose 368 mg/dl (70-90) 190 mg/dl (70-90) 110 mg/dl (70-90) 372 mg/dl (70-90) Recent Pertinent Medications Outpatient Anti-diabetic Regimen: * Novolin R 10 units BID (or Lantus 15 units SQ AM when pt can afford it) with Sliding scale Regular insulin * A1c = 7.2 % 07/10/17 The patient is currently receiving: * Basal insulin: LANTUS SQ daily * 0 units for BSG < 80mg/dl * 10 units for BSG 80-180mg/dl * 14 units for BSG > 180mg/dl - pt received 14 units yesterday * Correctional Insulin: Novolog Correction per scale ACHS Goal Range: Low 120 mg/dL - High 160 mg/dL Correction Factor: 20 mg/dL/unit * Prandial insulin: Per carb ratio of 1 unit per 7 grams CHO consumed Risk Factors for Insulin Resistance: * Diet: Type 2 DM Assessment & Plan ASSESSMENT: 11/13/17 * Pt had one episode of hyperglycemia yesterday and CF and CR parameters were tightened, and brought patient back to goal, but then her BSG fariba overnight to 389mg/dl this morning, pt slept all night, no carbs consumed. Will try increasing Lantus this morning and tighten CR slightly to home dose. * Will also add overnight BSG check at 0200 - spoke to charger tester, she is OK with doing this for patient, she easily sleeps and goes back to sleep. 11/12/17 * 32 year old female type 1 diabetic, well controlled per A1c in June. Needs updated A1c, but pt is currently refusing the lab * Admitted to [facility] for suicidal ideation * Admitted with hyperglycemia, then had an episode of hypoglycemia last night, treated with OJ and snack * Fasting AM BSG 193mg/dl this morning, will begin Lantus based on BSG once daily in the morning and continue CF and CR and titrate to goal PLAN FOR INPATIENT GLYCEMIC CONTROL: * Basal insulin with LANTUS SQ daily - INCREASE * 0 units for BSG < 80mg/dl * 15 units for BSG 80-180mg/dl * 18 units for BSG > 180mg/dl * Correctional Insulin with NOVOLOG per scale ACHS or Q6hr while NPO & at 0200 overnight tonight * Goal Range: Low 120 mg/dL - High 160 mg/dL * Correction Factor: 20 mg/dL/unit * TIGHTEN: Nutritional / Prandial insulin per carb ratio of 1 unit per 5 grams CHO consumed * Please note that the plan above was derived based on current level of insulin resistance and hospital stress. These recommendations are appropriate for inpatient admission only. Plan of care upon discharge will need to be reassessed to avoid potential outpatient hypo/hyperglycemia. Thank you.
--- NOTE | 2017-11-13 10:36 | Psychiatric Progress Notes ---
Progress Note Date of Service Nov 13, 2017. Interval History Isabella Yoon is a 32-year-old female admitted on Nov 11, 2017 at 17:01 who currently lives in [place] with 3 roommates. Isabella Yoon was admitted on a 201 voluntary commitment. Patient is admitted from home. The patient was brought to the ED by self transport. Information provided by the patient is considered to be reliable. Chief Complaint "I'm pretty alright I'd say". Subjective Patient was seen & assessed interval progress reviewed with Treatment Team. Staff reports morning glucose checks of 372 and 389. Pt has been scheduled for medication management and therapy through [facility]. Pt was seen today to assess progress since admission. She reports feeling "pretty alright" and states she has not noticed a change in mood since admission. Sleep continues to be adequate; however, she reports ongoing decrease in appetite. Pt reports "they tell me I have to eat at least 50%, so that's what I do". She reports nausea with food consumption for the past month and states she is unsure of the cause. Pt is aware of the need to eat, but has difficulty due to the nausea and lack of appetite. Pt continues to endorse SI, most recently for a period of time last evening. Pt received increased dose of Zoloft this AM and has not noticed any side effects or concerns thus far. Review of Systems Psych: denies symptoms other than stated above Constitutional: denied Cardiovascular: denied GI: reports nausea Neurologic: denied Remainder of 10 body systems also reviewed and denied other than noted above. Sleep Information Total Hours of Sleep: 7.25 Meal Information Percent of Breakfast Consumed: 25 Percent of Lunch Consumed: 50 Percent of Dinner Consumed: 50 Mental Status Exam During interview pt is: alert and oriented, cooperative Appearance: disheveled (t-shirt inside out; remains unkempt) Eye contact is: good Motor behavior is: steady gait & station, no abnormal motor movements Speech: other (Normal in rate and rhythm, soft voice, minimal in responses) Affect: mood congruent, depressed, anxious Mood is: depressed ("pretty alright"), anxious Thought process: goal directed, clear, coherent Thought content: reality based without delusions Suicidal thought are: present (most recently last evening), Plan: denied, Intent: denied Homicidal thoughts are: denied Hallucinations: denies auditory, denies visual Cognition: memory grossly intact, attention grossly intact, language grossly intact Intelligence estimated to be: average Insight: limited Judgement: limited Medication Trials Lexapro - 1 year duration, worked well Abilify - adjunct to Lexapro for a time, worked well Celexa - increased SI Wellbutrin Klonopin Impression Pt unable to report improvement in mood at this time. Increased Zoloft to 150mg effective this morning. Pt reports ongoing SI, most recently last evening. Blood glucose remains unstable and patient reports physical side effects of nausea from her high readings this morning. Continue to monitor mood and consider increase to 200mg on Zoloft if necessary. Pt requires ongoing inpatient treatment as she continues to endorse SI while on the unit and is at risk of self-harm if discharged. Plan (1) Major depressive disorder, recurrent episode 2/ - Increase sertraline to 150mg daily. - Encourage participation in group programming including recreation therapy and group therapy. - Coordination with previous outpatient providers. - Involvement of identified supports in family meeting. 2/2 - Received initial dose of Zoloft 150mg this AM - Continue to encourage participation in group programming - Encourage involvement of supports in family session (2) Suicidal ideation 2/ - Suicide safety checks q15 minutes - Encourage engagement in group programming with attention to appropriate coping skills. (3) Anxiety disorder NOS 2/ - Reports panic attacks 2-3 times a month along with anxiety with social interactions. - See depression treatment above. - Hydroxyzine prn. (4) Type 1 diabetes mellitus 2/ - Diabetic pharmacy consult and management due to diagnosis and inconsistent random blood glucose readings on the unit. 2/2 - Variability of glucose control ranging from 50 to 485 over the course of her admission, pt has 2 consecutive readings in the 300s this AM - Report from glycemic pharmacist reviewed. Recommends tightening CF and CR parameters. Added overnight BSG check at 0200. (5) Hypothyroidism 2/ - TSH checked prior to admission in ED. Level as of 11/11 = 4.360. - Pt reports regular follow up with endocrinology Discharge / Aftercare Planning Primary Care Physician: Name: Sp Banks - Dr. Godwin - will refer to Endocronologist Phone Number: Date of Appointment: Nov 19, 2017 Time of Appointment: 10:25 am Appointment Notes: [address] [facility] [address] Psychiatrist: Name: Bensonrayo Bella [facility] Date of Appointment: Nov 23, 2017 Time of Appointment: 2:30 pm Appointment Notes: [address] [facility] [address] [facility] [address] Therapist: Name: Nancy Adam Jiménez Date of Appointment: Nov 23, 2017 Time of Appointment: 2:30 pm Appointment Notes: [address] [address] Visit Code E&M Code: 54818 Inventory Assets Strengths: willingness for treatment, family supports Needs: mitigate risk factors, assistance dealing with recent stressors. Risk Factors Assessment : Yes /single/: Yes Higher / Fall in social status: No Health problems: Yes Mental Health Diagnoses: Yes Previous attempt: Yes Family history of suicide: No Previous psychiatric stay: Yes Hopelessness: Yes Smoker: No (recently quit) Protective Factors Assessment Sikh beliefs: Yes : No Responsible for young children: No Employed: No Stable relationships: No Supportive family: Yes Good rapport with provider: No Data Vital Signs Last 24 Hrs: Date Time Temp Pulse Resp B/P (MAP) Pulse Ox O2 Delivery O2 Flow Rate FiO2 11/13/17 06:36 36.8 73 16 123/73 88 120/85 Meds Administered Last 24 Hrs: Meds Administered (Past 24Hrs) Medications (Trade) Dose Ordered Sig/Bessy Route Start Time Stop Time Status Last Admin Dose Admin Sodium Chloride 1,000 ml @ 999 mls/hr Q1H1M STAT IV 11/11/17 14:20 11/11/17 15:20 DC 11/11/17 14:44 999 MLS/HR Sertraline HCl (Zoloft Tab) 100 mg QAM PO 11/12/17 09:00 11/12/17 10:24 DC 11/12/17 08:39 100 MG Levothyroxine Sodium (Synthroid Tab) 100 mcg MoTuWeThFrSa@0800 PO 11/12/17 08:00 12/12/17 07:59 11/13/17 07:49 100 MCG Insulin Aspart (novoLOG ASPART) 10 units NOW ONCE SC 11/11/17 18:00 11/11/17 18:01 DC 11/11/17 18:21 10 UNITS Influenza Virus Vaccine Quadrival (Flucelvax Quad Vaccine) 0.5 ml ONCE ONCE IM. 11/11/17 20:00 11/11/17 20:01 DC 11/12/17 13:28 0.5 ML Insulin Aspart (novoLOG ASPART) SLIDING SCALE ACHS [place] 11/11/17 22:00 12/11/17 21:59 11/13/17 09:03 20 UNITS Insulin Aspart (novoLOG ASPART) SLIDING SCALE TODAY@0000,0400 [place] 11/12/17 00:00 11/12/17 04:01 DC 11/12/17 00:22 1 UNITS Insulin Glargine (Lantus Solostar Pen) 8 units NOW ONCE [place] 11/11/17 22:30 11/11/17 22:31 DC 11/11/17 22:45 8 UNITS Insulin Glargine (Lantus Solostar Pen) SEE PROTOCOL DAILY [place] 11/12/17 09:00 12/12/17 08:59 11/13/17 09:04 18 UNITS Sertraline HCl (Zoloft Tab) 150 mg QAM PO 11/13/17 09:00 12/12/17 08:59 11/13/17 08:43 150 MG Lab Results Last 24 Hrs: Last 24 Hours Test 11/12/17 12:06 11/12/17 17:13 11/12/17 21:40 11/13/17 07:43 Bedside Glucose 368 mg/dl 190 mg/dl 110 mg/dl 372 mg/dl Problem Qualifiers (1) Major depressive disorder, recurrent episode: Major depression episode severity: severe Psychotic features: without psychotic features Qualified Codes: F33.2 - Major depressive disorder, recurrent severe without psychotic features
[2017-11-13 14:16] VITALS: Ht 162.6 cm; Wt 47.3 kg
[2017-11-14] MEDS ORDERED: INSULIN ASPART 100 UNITS/ML 3 ML PEN SC ONE (02:00)
[2017-11-14 06:55] VITALS: BP_SYST 123; BP_SYST 125; BP_DIAS 76; BP_DIAS 85; PULSE 76; PULSE 86; TEMP 37
[2017-11-14] MEDS: LEVOTHYROXINE 100 MCG TAB PO SCH (07:54)
[2017-11-14] MEDS: INSULIN ASPART 100 UNITS/ML 3 ML PEN SC SCH ×4 (08:00→21:18)
[2017-11-14] MEDS ORDERED: INSULIN GLARGINE SOLOSTAR 100 UNITS/ML 3 ML PEN SC ONE (08:15)
[2017-11-14] MEDS: SERTRALINE HCL 100 MG TAB PO SCH (09:25)
--- NOTE | 2017-11-14 13:19 | Psychiatric Progress Notes ---
Progress Note Date of Service Nov 14, 2017. Interval History Isabella Yoon is a 32-year-old female admitted on Nov 11, 2017 at 17:01 who currently lives in [place] with 3 roommates. Isabella Yoon was admitted on a 201 voluntary commitment. Patient is admitted from home. The patient was brought to the ED by self transport. Information provided by the patient is considered to be reliable. Chief Complaint "fine". Subjective Patient was seen & assessed interval progress reviewed with Nursing. Staff reports patient had a phone meeting with her mother yesterday which focused quite a bit on the mother's concerns about the patient's low weight. Pt's blood glucose readings remain elevated in the 300's and patient continues to receive close monitoring from the glycemic pharmacist. Staff reports the patient's mother suggested a facility in [place] for long-term depression treatment and states she would be willing to pay for the service. Pt was seen today to assess progress since admission. Pt reports feeling more optimistic and less anxious. She states her mood has improved. 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 Pt reports meeting with her mother last evening was "ok" and that she feels her mother is "just being a concerned mother ". Pt reports considerable discussion about the patient's weight to which patient continues to endorse low appetite due to stress and nausea with ingestion of food. She denies poor self-image and recognizes the need to eat. Pt reports working with the compliance investigator and has been receiving easily-tolerable foods, she now reports decreased nausea. Pt denies SI at this encounter with her last episode being two evenings ago. She denies concerns or needs today. Review of Systems Psych: denies symptoms other than stated above Constitutional: denied Cardiovascular: denied GI: denied Neurologic: denied Remainder of 10 body systems also reviewed and denied other than noted above. Sleep Information Total Hours of Sleep: 7.50 Meal Information Percent of Breakfast Consumed: 90 Percent of Lunch Consumed: 90 Percent of Dinner Consumed: 75 Mental Status Exam During interview pt is: alert and oriented, cooperative Appearance: appropriately dressed (new clothing), appropriately groomed Eye contact is: good Motor behavior is: steady gait & station, no abnormal motor movements Speech: normal in rate, rhythm & volume (minimal responses) Affect: mood congruent, blunted, anxious Mood is: other ("fine") Thought process: goal directed, clear, coherent Thought content: reality based without delusions Suicidal thought are: denied, Plan: denied, Intent: denied Homicidal thoughts are: denied Hallucinations: denies auditory, denies visual Cognition: memory grossly intact, attention grossly intact, language grossly intact Intelligence estimated to be: average Insight: fair Judgement: fair Medication Trials Lexapro - 1 year duration, worked well Abilify - adjunct to Lexapro for a time, worked well Celexa - increased SI Wellbutrin Klonopin Impression Pt noticing improvement in mood and denies SI for the past two days. She reports feeling more optimistic. Nausea with food intake decreased following consult with compliance investigator. Continue to monitor mood, discussed increase to 200mg on Zoloft if necessary down the road. Pt requires ongoing inpatient treatment as she continues to endorse SI while on the unit and is at risk of self-harm if discharged. Plan (1) Major depressive disorder, recurrent episode 2/1 - Increase sertraline to 150mg daily. - Encourage participation in group programming including recreation therapy and group therapy. - Coordination with previous outpatient providers. - Involvement of identified supports in family meeting. 2/2 - Received initial dose of Zoloft 150mg this AM - Continue to encourage participation in group programming - Encourage involvement of supports in family session 2/3 - Continue current medications - Encourage participation in group programming. (2) Suicidal ideation 2/ - Suicide safety checks q15 minutes - Encourage engagement in group programming with attention to appropriate coping skills. (3) Anxiety disorder NOS 2/ - Reports panic attacks 2-3 times a month along with anxiety with social interactions. - See depression treatment above. - Hydroxyzine prn. (4) Type 1 diabetes mellitus 2/ - Diabetic pharmacy consult and management due to diagnosis and inconsistent random blood glucose readings on the unit. 2/2 - Variability of glucose control ranging from 50 to 485 over the course of her admission, pt has 2 consecutive readings in the 300s this AM - Report from glycemic pharmacist reviewed. Recommends tightening CF and CR parameters. Added overnight BSG check at 0200. 2/3 - Ongoing monitoring and recommendations from glycemic pharmacist. (5) Hypothyroidism 2/ - TSH checked prior to admission in ED. Level as of 11/11 = 4.360. - Pt reports regular follow up with endocrinology Discharge / Aftercare Planning Primary Care Physician: Name: Sp Banks - Dr. Godwin - will refer to Endocronologist Phone Number: Date of Appointment: Nov 19, 2017 Time of Appointment: 10:25 am Appointment Notes: [address] [facility] [address] Psychiatrist: Name: Estevan Medina - TelePsych[facility] Date of Appointment: Nov 23, 2017 Time of Appointment: 2:30 pm Appointment Notes: [address] [address] Therapist: Name: Estevan Jiménez Date of Appointment: Nov 23, 2017 Time of Appointment: 2:30 pm Appointment Notes: [address] [place] [address] Visit Code E&M Code: 09283 Inventory Assets Strengths: willingness for treatment, family supports Needs: mitigate risk factors, assistance dealing with recent stressors. Risk Factors Assessment : Yes /single/: Yes Higher / Fall in social status: No Health problems: Yes Mental Health Diagnoses: Yes Previous attempt: Yes Family history of suicide: No Previous psychiatric stay: Yes Hopelessness: Yes Smoker: No (recently quit) Protective Factors Assessment Pentecostal beliefs: Yes : No Responsible for young children: No Employed: No Stable relationships: No Supportive family: Yes Good rapport with provider: No Data Vital Signs Last 24 Hrs: Date Time Temp Pulse Resp B/P (MAP) Pulse Ox O2 Delivery O2 Flow Rate FiO2 11/14/17 06:55 37.0 76 16 125/76 86 123/85 Meds Administered Last 24 Hrs: Meds Administered (Past 24Hrs) Medications (Trade) Dose Ordered Sig/Bessy Route Start Time Stop Time Status Last Admin Dose Admin Sertraline HCl (Zoloft Tab) 150 mg QAM PO 11/13/17 09:00 12/12/17 08:59 11/14/17 09:25 150 MG Insulin Glargine (Lantus Solostar Pen) 8 units TODAY@0815 ONCE SC 11/14/17 08:15 11/14/17 08:16 DC 11/14/17 09:27 8 UNITS Lab Results Last 24 Hrs: Last 24 Hours Test 11/13/17 15:58 11/13/17 20:43 2/3/18 01:41 11/14/17 07:57 Bedside Glucose 75 mg/dl 123 mg/dl 70 mg/dl 73 mg/dl Test 11/14/17 12:18 Bedside Glucose 255 mg/dl Problem Qualifiers (1) Major depressive disorder, recurrent episode: Major depression episode severity: severe Psychotic features: without psychotic features Qualified Codes: F33.2 - Major depressive disorder, recurrent severe without psychotic features
--- NOTE | 2017-11-14 13:53 | Pharmacy Progress Note ---
Glycemic Control Progress Note Date of Service Nov 14, 2017. Scope Glycemic Pharmacist consulted for glycemic control to write orders per [facility] inpatient glycemic control protocol. Objective Accuchecks BSG (last 24hrs): Test 11/13/17 15:58 11/13/17 20:43 11/14/17 01:41 11/14/17 07:57 Bedside Glucose 75 mg/dl (70-90) 123 mg/dl (70-90) 70 mg/dl (70-90) 73 mg/dl (70-90) Test 11/14/17 12:18 Bedside Glucose 255 mg/dl (70-90) Recent Pertinent Medications Outpatient Anti-diabetic Regimen: * Novolin R 10 units BID (or Lantus 15 units SQ AM when pt can afford it) with Sliding scale Regular insulin * A1c = 7.2 % 07/10/17 The patient is currently receiving: * Basal insulin: LANTUS SQ daily * 0 units for BSG < 80mg/dl * 15 units for BSG 80-180mg/dl * 18 units for BSG > 180mg/dl - pt received 18 units yesterday * Correctional Insulin: Novolog Correction per scale ACHS Goal Range: Low 120 mg/dL - High 160 mg/dL Correction Factor: 20 mg/dL/unit * Prandial insulin: Per carb ratio of 1 unit per 5 grams CHO consumed Risk Factors for Insulin Resistance: * Diet: Type 2 DM Assessment & Plan ASSESSMENT: 11/14/17 * BSG was low at 70mg/dl overnight at 0200, treated with OJ, and still at 73mg/ dl when she woke up, so I reduced dose of AM Lantus, and decrease overall daily dose. 11/13/17 * Pt had one episode of hyperglycemia yesterday and CF and CR parameters were tightened, and brought patient back to goal, but then her BSG fariba overnight to 389mg/dl this morning, pt slept all night, no carbs consumed. Will try increasing Lantus this morning and tighten CR slightly to home dose. * Will also add overnight BSG check at 0200 - spoke to kiln charger, she is OK with doing this for patient, she easily sleeps and goes back to sleep. 11/12/17 * 32 year old female type 1 diabetic, well controlled per A1c in June. Needs updated A1c, but pt is currently refusing the lab * Admitted to [facility] for suicidal ideation * Admitted with hyperglycemia, then had an episode of hypoglycemia last night, treated with OJ and snack * Fasting AM BSG 193mg/dl this morning, will begin Lantus based on BSG once daily in the morning and continue CF and CR and titrate to goal PLAN FOR INPATIENT GLYCEMIC CONTROL: * Basal insulin with LANTUS SQ daily - DECREASE * 8 units SQ this AM then * 0 units for BSG < 80mg/dl * 12 units for BSG 80-180mg/dl * 15 units for BSG > 180mg/dl * Correctional Insulin with NOVOLOG per scale ACHS or Q6hr while NPO * Goal Range: Low 120 mg/dL - High 160 mg/dL * Correction Factor: 20 mg/dL/unit * Nutritional / Prandial insulin per carb ratio of 1 unit per 5 grams CHO consumed * Please note that the plan above was derived based on current level of insulin resistance and hospital stress. These recommendations are appropriate for inpatient admission only. Plan of care upon discharge will need to be reassessed to avoid potential outpatient hypo/hyperglycemia. Thank you.
[2017-11-15 06:54] VITALS: BP_SYST 122; BP_SYST 129; BP_DIAS 74; BP_DIAS 87; PULSE 79; PULSE 93; TEMP 37
--- NOTE | 2017-11-15 07:00 | Psychiatric Progress Notes ---
Progress Note Date of Service Nov 15, 2017. Interval History Isabella Yoon is a 32-year-old female admitted on Nov 11, 2017 at 17:01 who currently lives in [place] with 3 roommates. Isabella Yoon was admitted on a 201 voluntary commitment. Patient is admitted from home. The patient was brought to the ED by self transport. Information provided by the patient is considered to be reliable. Chief Complaint "Better". Subjective Patient was seen & assessed interval progress reviewed with Nursing. Staff report her blood glucose continues to be poorly controlled, with both hypoglycemic and hyperglycemic episodes. She goes to some groups and has limited participation. Today the patient was seen in her room, she was in bed and feeling ill with a glucose of 398 this morning. She has nausea and a headache, and has not been able to eat so far today. She stated that her diabetes is chronically poorly controlled, but despite this, her mood has actually improved here. She is feeling more hopeful, stating that she is feeling closer to discharge, and is thinking about the things she needs to do when she gets home, like looking for a job. She says her insurance then someone to talk to her about getting a case work aide, which she is willing to do , although she wasn't sure what agency this would be through. She denies suicidal thoughts, and feels safe here. Sleep Information Total Hours of Sleep: 9.00 Meal Information Percent of Breakfast Consumed: 90 Percent of Lunch Consumed: 100 Percent of Dinner Consumed: 100 Mental Status Exam During interview pt is: alert and oriented, cooperative Appearance: disheveled, other (very thin, lying in bed in no acute distress) Eye contact is: good Motor behavior is: no abnormal motor movements Speech: normal in rate, rhythm & volume Affect: blunted, anxious Mood is: other ("better") Thought process: goal directed Thought content: reality based without delusions Suicidal thought are: denied, Plan: denied, Intent: denied Homicidal thoughts are: denied Hallucinations: denies auditory, denies visual Cognition: memory grossly intact, attention grossly intact, language grossly intact Intelligence estimated to be: average Insight: fair Judgement: fair Medication Trials Lexapro - 1 year duration, worked well Abilify - adjunct to Lexapro for a time, worked well Celexa - increased SI Wellbutrin Klonopin Impression Mood and suicidal thoughts are improving, the patient is feeling more optimistic , and is making plans for the future. She continues to have significant difficulty with her diabetes, today with the elevated blood sugar, nausea, and headache. She is hoping to be able to be discharged in the next couple of days , and has been referred for outpatient treatment at [facility]. Although she is improving, her progress as an early tentative stages, and she requires continued inpatient treatment at this time due to the risk of decompensation and harm to self if discharged prematurely. Plan (1) Major depressive disorder, recurrent episode 2/1 - Increase sertraline to 150mg daily. - Encourage participation in group programming including recreation therapy and group therapy. - Coordination with previous outpatient providers. - Involvement of identified supports in family meeting. 2/2 - Received initial dose of Zoloft 150mg this AM - Continue to encourage participation in group programming - Encourage involvement of supports in family session 2/3 - Continue current medications - Encourage participation in group programming. 2/4 - Continue current medications, and work on discharge safety plan. She has been spending most of her time in bed, and has not been very engaged in groups or therapy. (2) Suicidal ideation 2/ - Suicide safety checks q15 minutes - Encourage engagement in group programming with attention to appropriate coping skills. (3) Anxiety disorder NOS 2/ - Reports panic attacks 2-3 times a month along with anxiety with social interactions. - See depression treatment above. - Hydroxyzine prn. (4) Type 1 diabetes mellitus 2/ - Diabetic pharmacy consult and management due to diagnosis and inconsistent random blood glucose readings on the unit. 2/2 - Variability of glucose control ranging from 50 to 485 over the course of her admission, pt has 2 consecutive readings in the 300s this AM - Report from glycemic pharmacist reviewed. Recommends tightening CF and CR parameters. Added overnight BSG check at 0200. 2/3 - Ongoing monitoring and recommendations from glycemic pharmacist. (5) Hypothyroidism 2/ - TSH checked prior to admission in ED. Level as of 11/11 = 4.360. - Pt reports regular follow up with endocrinology Discharge / Aftercare Planning Primary Care Physician: Name: Sp Banks - Dr. Godwin - will refer to Endocronologist Phone Number: Date of Appointment: Nov 19, 2017 Time of Appointment: 10:25 am Appointment Notes: [address] [facility] [address] Psychiatrist: Name: Estevan Adam Bella [facility] Date of Appointment: Nov 23, 2017 Time of Appointment: 2:30 pm Appointment Notes: [address] [address] Therapist: Name: Estevan Adam Jiménez Date of Appointment: Nov 23, 2017 Time of Appointment: 2:30 pm Appointment Notes: [address] [address] Visit Code E&M Code: 70241 Inventory Assets Strengths: willingness for treatment, family supports Needs: mitigate risk factors, assistance dealing with recent stressors. Risk Factors Assessment : Yes /single/: Yes Higher / Fall in social status: No Health problems: Yes Mental Health Diagnoses: Yes Previous attempt: Yes Family history of suicide: No Previous psychiatric stay: Yes Hopelessness: Yes Smoker: No (recently quit) Protective Factors Assessment Catholic beliefs: Yes : No Responsible for young children: No Employed: No Stable relationships: No Supportive family: Yes Good rapport with provider: No Data Vital Signs Last 24 Hrs: Date Time Temp Pulse Resp B/P (MAP) Pulse Ox O2 Delivery O2 Flow Rate FiO2 11/15/17 06:54 37.0 79 16 129/87 93 122/74 Meds Administered Last 24 Hrs: Meds Administered (Past 24Hrs) Medications (Trade) Dose Ordered Sig/Bessy Route Start Time Stop Time Status Last Admin Dose Admin Sertraline HCl (Zoloft Tab) 150 mg QAM PO 11/13/17 09:00 12/12/17 08:59 11/14/17 09:25 150 MG Insulin Glargine (Lantus Solostar Pen) 8 units TODAY@0815 ONCE SC 11/14/17 08:15 11/14/17 08:16 DC 11/14/17 09:27 8 UNITS Lab Results Last 24 Hrs: Last 24 Hours Test 11/14/17 07:57 11/14/17 12:18 11/14/17 16:04 11/14/17 16:23 Bedside Glucose 73 mg/dl 255 mg/dl 55 mg/dl 93 mg/dl Test 11/14/17 21:15 Bedside Glucose 146 mg/dl Problem Qualifiers (1) Major depressive disorder, recurrent episode: Major depression episode severity: severe Psychotic features: without psychotic features Qualified Codes: F33.2 - Major depressive disorder, recurrent severe without psychotic features
[2017-11-15] MEDS: INSULIN GLARGINE SOLOSTAR 100 UNITS/ML 3 ML PEN SC SCH (08:24)
[2017-11-15] MEDS: INSULIN ASPART 100 UNITS/ML 3 ML PEN SC SCH ×4 (08:25→20:53)
[2017-11-15] MEDS: SERTRALINE HCL 100 MG TAB PO SCH (08:28)
--- NOTE | 2017-11-15 14:27 | Pharmacy Progress Note ---
Glycemic Control Progress Note Date of Service Nov 15, 2017. Scope Glycemic Pharmacist consulted for glycemic control to write orders per [facility] inpatient glycemic control protocol. Objective Accuchecks BSG (last 24hrs): Test 11/14/17 16:04 11/14/17 16:23 11/14/17 21:15 11/15/17 07:40 Bedside Glucose 55 mg/dl (70-90) 93 mg/dl (70-90) 146 mg/dl (70-90) 398 mg/dl (70-90) Test 11/15/17 11:34 11/15/17 12:38 Bedside Glucose 179 mg/dl (70-90) 123 mg/dl (70-90) Recent Pertinent Medications Outpatient Anti-diabetic Regimen: * Novolin R 10 units BID (or Lantus 15 units SQ AM when pt can afford it) with Sliding scale Regular insulin: CF 20mg/dl/unit; Carb ratio 1 unit per 5 grams CHO * A1c = 7.2 % 07/10/17, pt refuses updated A1c The patient is currently receiving: * Basal insulin: LANTUS SQ daily * 0 units for BSG < 80mg/dl * 12 units for BSG 80-180mg/dl * 15 units for BSG > 180mg/dl * pt received 8 units yesterday for hypoglycemia * Correctional Insulin: Novolog Correction per scale ACHS Goal Range: Low 120 mg/dL - High 160 mg/dL Correction Factor: 30 mg/dL/unit * Prandial insulin: Per carb ratio of 1 unit per 6 grams CHO consumed Risk Factors for Insulin Resistance: * Diet: Type 2 DM Assessment & Plan ASSESSMENT: 11/15/17 * Blood sugar fariba 250 points overnight without any insulin or carb consumption. * Patient's Blood sugar has been very difficult to manage, and this is typical for her outpatient control too. * Patient will follow-up with player piano technician after discharge. * Spoke with nursing, pt will be OK with having blood sugars checked overnight to ensure patient is not rebounding from hypoglycemia overnight (possible somoygi effect). * Pt wants to leave, likely discharge tomorrow. * Spoke with Dr Powell today regarding patient's BSGs and plan for discharge. 11/14/17 * BSG was low at 70mg/dl overnight at 0200, treated with OJ, and still at 73mg/ dl when she woke up, so I reduced dose of AM Lantus, and decrease overall daily dose. 11/13/17 * Pt had one episode of hyperglycemia yesterday and CF and CR parameters were tightened, and brought patient back to goal, but then her BSG fariba overnight to 389mg/dl this morning, pt slept all night, no carbs consumed. Will try increasing Lantus this morning and tighten CR slightly to home dose. * Will also add overnight BSG check at 0200 - spoke to furnace charger, she is OK with doing this for patient, she easily sleeps and goes back to sleep. 11/12/17 * 32 year old female type 1 diabetic, well controlled per A1c in June. Needs updated A1c, but pt is currently refusing the lab * Admitted to [facility] for suicidal ideation * Admitted with hyperglycemia, then had an episode of hypoglycemia last night, treated with OJ and snack * Fasting AM BSG 193mg/dl this morning, will begin Lantus based on BSG once daily in the morning and continue CF and CR and titrate to goal PLAN FOR INPATIENT GLYCEMIC CONTROL: * Basal insulin with LANTUS SQ daily * 0 units for BSG < 80mg/dl * 12 units for BSG 80-180mg/dl * 15 units for BSG > 180mg/dl * Correctional Insulin with NOVOLOG per scale ACHS or Q6hr while NPO and overnight at 0000, 0400 tonight * Goal Range: Low 120 mg/dL - High 160 mg/dL * Correction Factor: 25 mg/dL/unit * Nutritional / Prandial insulin per carb ratio of 1 unit per 6 grams CHO consumed * Correctional Insulin with NOVOLOG per scale overnight at 0000, 0400 tonight * Goal Range: Low 100 mg/dL - High 200 mg/dL * Correction Factor: 50 mg/dL/unit * Nutritional / Prandial insulin per carb ratio of 1 unit per 50 grams CHO consumed * Please note that the plan above was derived based on current level of insulin resistance and hospital stress. These recommendations are appropriate for inpatient admission only. Plan of care upon discharge will need to be reassessed to avoid potential outpatient hypo/hyperglycemia. DISCHARGE RECOMMENDATIONS: * Basaglar & Apidra covered by insurance * Basaglar 15 units SQ daily * Apidra: 1 unit per 5 grams CHO consumed; 25mg/dl/unit for BSG > 175mg/dl Thank you.
[2017-11-16] MEDS: INSULIN ASPART 100 UNITS/ML 3 ML PEN SC SCH ×3 (04:00→09:07)
[2017-11-16 06:52] VITALS: BP_SYST 123; BP_SYST 127; BP_DIAS 79; BP_DIAS 82; PULSE 76; PULSE 84; TEMP 36.9
[2017-11-16] MEDS: LEVOTHYROXINE 100 MCG TAB PO SCH (08:29)
[2017-11-16] MEDS: INSULIN GLARGINE SOLOSTAR 100 UNITS/ML 3 ML PEN SC SCH (09:11)
[2017-11-16] MEDS: SERTRALINE HCL 100 MG TAB PO SCH (09:15)
[2017-11-16] MEDS ORDERED: SERT-234 PO (09:21)
[2017-11-16] MEDS ORDERED: INSDGIPEN SC (09:21)
[2017-11-16] MEDS ORDERED: NVLGIPEN SC (09:21)
[2017-11-16] MEDS ORDERED: ATR25 PO (09:21)
--- NOTE | 2017-11-16 09:34 | Discharge Instructions ---
Discharge Information Report Includes Report will include the: Discharge Instructions & Summary Admission Admission Date / Time: Nov 11, 2017 at 17:01 Reason for Admission: Major Depression Recurring Severe Discharge Discharge Diagnosis / Problem: depression Condition at Discharge: Good Discharge Goals Goal(s): Decrease discomfort, Improve disease control, Prevent Disease Progression Activity Recommendations Activity Limitations: resume your previous activity . Instructions / Follow-Up Instructions / Follow-Up . SPECIAL CARE INSTRUCTIONS: 1. Follow through with your scheduled aftercare appointments. If unable to keep an appointment, please call to reschedule. 2. Take your medication only as prescribed. Medication should not be changed or stopped without the approval of your doctor. In the event of worsening symptoms or concerns about side effects, contact your doctor immediately. 3. Utilize new healthy coping skills, anger management skills, and stress management skills learned during your hospitalization. Journal feelings and process them with a support person. Identify stressors or situations that may result in relapse, deterioration or inappropriate behaviors and develop a plan to deal with those issues. 4. If your coping skills are ineffective and you are in crisis, contact your outpatient providers for direction. If unable to reach your providers, please call the CAN HELP LINE AT or go to the closest Emergency Room. 5. Avoid alcohol and un-prescribed drugs. 6. You have been provided with the Mental Health Advance Directives Pamphlet for your review. AFTERCARE APPOINTMENTS: * Please call your insurance company prior to your scheduled appointment to confirm your aftercare providers are covered. Take your insurance information to your appointments. . Discharge / Aftercare Planning Primary Care Physician: Name: Sp Banks - Dr. Godwin - will refer to Endocronologist Phone Number: Date of Appointment: Nov 19, 2017 Time of Appointment: 10:25 am Appointment Notes: [address] [place] [address] [place] [address] Psychiatrist: Name: Estevan Medina - [facility] Date of Appointment: Nov 23, 2017 Time of Appointment: 2:30 pm Appointment Notes: [address] [place] [address] Therapist: Name Of Therapist: Estevan Jiménez Date of Appointment: Nov 23, 2017 Time of Appointment: 2:30 pm Appointment Comments: [address] [place] [address] . Follow-Up Care Plan for Follow-Up Care: The patient will have follow up at [facility]. Current Hospital Diet Patient's current hospital diet: Diabetes Type 1 Diet Discharge Diet Recommended Diet: Diabetes Type 1 Diet Procedures Procedures Performed: No Pending Studies Pending Studies at Discharge: No Medical Emergencies . Who to Call and When: Medical Emergencies: For questions or emergencies related to your hospital stay, please contact the Inpatient Behavioral Health Unit at [phone]. A pile driver operator barge mounted is on-call 04/05 for the Behavioral Health Unit for emergencies At any time you feel your situation is an emergency, you may also call 911 immediately. . Non-Emergent Contact Non-Emergency issues call your: Primary Care Provider, Psychiatrist, Therapist Past History Medical & Surgical History: (1) Type 1 diabetes mellitus (2) Hypothyroidism Advance Directives Existing Advance Directive: No Do You Have an Existing Mental: No Existing Living Will: No Existing Power of Manufacturing Quality Inspector: No Advance Directives Info Given: To Pt/S.O. Advance Directives Reason: Declines as Mental Health Visit. Discharge Summary Admission HPI Per the Admitting provider: Isabella Yoon is a 32-year-old female admitted to [address] [place] [address] on a voluntary commitment following worsening depression with SI for the past 2 months. Pt notes several recent stressors including her grandmother's in June 2017 and her boyfriend of 3.5 years leaving her in August 2017. Pt states she started to feel worsening of depression in mid-September which worsened when she was fired from her job 1.5 weeks ago due to not showing up for work due to decreased mood. Pt states she has struggled with depression " on and off for my entire adult life". She has had several inpatient hospitalizations in the past for depression and SI at [facility], [facility], [facility], and [facility]. Her most recent admission was at [facility] in 2013 following depression and a suicide attempt in which she attempted to overdose on her insulin. She was been taking Zoloft 100mg regularly for the past 9 months, currently prescribed by her brakes inspector as her mood was concerning. Pt is a Type-1 diabetic and also has been diagnosed with hypothyroidism. She reports recent weight loss due to nausea and abdominal pain with ingestion of food. Pt reports depressive symptoms including low mood, isolative behavior, decreased functioning in regard to attending to hygiene, reduced appetite resulting in >20lb weight loss in the last 2 months, sleep difficulties with frequent awakening, increased desire to remain in bed, decreased concentration, hopelessness, and guilt. Pt states she has had SI for the past few months, and states "suicide is appealing, but I haven't thought about an actual plan". Pt states her concern for her family has prevented her from acting on these thoughts. Pt also reports ongoing anxiety specifically in relation to social interactions. She reports feeling uncomfortable with situations outside of her home or group of roommates. She reports 2-3 panic attacks in the last months in which "it feels like is imminent and I worry about what that will mean for me and my family". Pt denies current outpatient psychiatric treatment, but was seen a few years ago at [facility] for both medication management and therapy. Pt reports trials of Celexa, Wellbutrin, Klonopin, Abilify, and Lexapro. Pt feels the Lexapro has worked the best and recalls taking 10mg daily for about 1 year. At some point Abilify was added to the regimen which she reports was also beneficial to her mood. Pt denies HI, SIB aside from unintentionally picking skin, demetrius, paranoia, OCD, PTSD, eating disorder, and other psychosis. Hospital Course (1) Major depressive disorder, recurrent episode 2/1 - Increase sertraline to 150mg daily. - Encourage participation in group programming including recreation therapy and group therapy. - Coordination with previous outpatient providers. - Involvement of identified supports in family meeting. 2/2 - Received initial dose of Zoloft 150mg this AM - Continue to encourage participation in group programming - Encourage involvement of supports in family session 2/3 - Continue current medications - Encourage participation in group programming. 2/4 - Continue current medications, and work on discharge safety plan. She has been spending most of her time in bed, and has not been very engaged in groups or therapy. (2) Suicidal ideation 2/ - Suicide safety checks q15 minutes - Encourage engagement in group programming with attention to appropriate coping skills. (3) Anxiety disorder NOS 2/1 - Reports panic attacks 2-3 times a month along with anxiety with social interactions. - See depression treatment above. - Hydroxyzine prn. (4) Type 1 diabetes mellitus 2/1 - Diabetic pharmacy consult and management due to diagnosis and inconsistent random blood glucose readings on the unit. 2/2 - Variability of glucose control ranging from 50 to 485 over the course of her admission, pt has 2 consecutive readings in the 300s this AM - Report from glycemic pharmacist reviewed. Recommends tightening CF and CR parameters. Added overnight BSG check at 0200. 2/3 - Ongoing monitoring and recommendations from glycemic pharmacist. (5) Hypothyroidism 2/ - TSH checked prior to admission in ED. Level as of 11/11 = 4.360. - Pt reports regular follow up with endocrinology Risk Factors Assessment : Yes /single/: Yes Higher / Fall in social status: No Health problems: Yes Mental Health Diagnoses: Yes Previous attempt: Yes Family history of suicide: No Previous psychiatric stay: Yes Hopelessness: Yes Smoker: No (recently quit) Protective Factors Assessment Mormonism beliefs: Yes : No Responsible for young children: No Employed: No Stable relationships: No Supportive family: Yes Good rapport with provider: No Day of Discharge Assessment COURSE OF HOSPITALIZATION: The patient was on our unit for 5 days. She was admitted voluntarily with multiple stressors including the recent of her grandmother, breakup with a boyfriend, and loss of her job. She also has type 1 diabetes that has been unstable. During her stay her Zoloft was increased to 150 mg daily. We enlist the support of the diabetic pharmacist to help to adjust her insulins dosage in view of the fact that she was having both high and low readings. The patient follows with [facility] for endocrinology. During her stay, the patient participated in group and individual counseling although when her sugars were irregular, she sometimes felt unwell and not able to go to groups. Family meeting was held with the patient's mother on November 13. Mother observed the patient's mood had been worsening since the breakup with the boyfriend. Mother was also worried that she had problems with her body image and eating which the patient admitted seeing that sometimes eating makes her sick and she finds food to be offensive. She also noted patient's mood consistently worsens during winter months. Over the course of her stay her mood improved, she rates her mood today an 8 or 9 out of 10. She is agreeable to having follow-up with [facility] and denies any further thoughts of suicide. She denies any side effects to Zoloft. DAY OF DISCHARGE ASSESSMENT: Today the patient is requesting discharge. She feels ready to go home, and is without suicidal thinking. She is able to state a safety plan that includes reaching out to her providers, her roommates and ultimately returning to the emergency department in the event of severe worsening mood problems. Today she is casually dressed. She is somewhat disheveled. She is extremely thin and does not appear healthy. Her gait and station are within normal limits. Eye contact is minimal. Speech is of normal rate volume and tone. Thoughts are organized, goal-directed, and without evidence of thought disorder. Recent and remote memory are intact per conversation. Intelligence is estimated to be average. Insight and judgment are improved over admission. Laboratory Test 11/11/17 14:23 11/11/17 14:35 11/16/17 03:59 11/16/17 07:30 White Blood Count 4.65 Red Blood Count 4.68 Hemoglobin 16.6 Hematocrit 46.4 Mean Corpuscular Volume 99.1 Mean Corpuscular Hemoglobin 35.5 Mean Corpuscular Hemoglobin Concent 35.8 Platelet Count 208 Mean Platelet Volume 11.6 Neutrophils (%) (Auto) 53.8 Lymphocytes (%) (Auto) 33.3 Monocytes (%) (Auto) 8.6 Eosinophils (%) (Auto) 3.7 Basophils (%) (Auto) 0.2 Neutrophils # (Auto) 2.50 Lymphocytes # (Auto) 1.55 Monocytes # (Auto) 0.40 Eosinophils # (Auto) 0.17 Basophils # (Auto) 0.01 RDW Standard Deviation 45.8 RDW Coefficient of Variation 12.7 Immature Granulocyte % (Auto) 0.4 Immature Granulocyte # (Auto) 0.02 Sodium Level 132 Potassium Level 3.9 Chloride Level 96 Carbon Dioxide Level 30 Anion Gap 6.0 Blood Urea Nitrogen 13 Creatinine 1.03 Est Creatinine Clear Calc Drug Dose 59.6 Estimated GFR () 84.5 Estimated GFR (Non- 72.9 BUN/Creatinine Ratio 12.7 Random Glucose 378 Calcium Level 8.7 Total Bilirubin 0.5 Direct Bilirubin Aspartate Amino Transferase (AST) 11 Alanine Aminotransferase (ALT) 24 Alkaline Phosphatase 91 Total Protein 7.7 Albumin 3.8 Globulin 3.9 Albumin/Globulin Ratio 1.0 Thyroid Stimulating Hormone (TSH) 4.360 Chemistry Specimen Hemolysis Ethyl Alcohol mg/dL < 3.0 Urine Color YELLOW Urine Appearance CLEAR Urine pH 5.0 Urine Specific Stephenson > 1.045 Urine Protein NEG Urine Glucose (UA) 3+ Urine Ketones NEG Urine Occult Blood NEG Urine Nitrite NEG Urine Bilirubin NEG Urine Urobilinogen NEG Urine Leukocyte Esterase NEG Urine Test NEG Urine Opiates Screen NEG Urine Methadone, Qualitative NEG Urine Barbiturates NEG Urine Phencyclidine (PCP) Level NEG Ur Amphetamine/Methamphetamine NEG MDMA (Ecstasy) Screen NEG Urine Benzodiazepines Screen NEG Urine Cocaine Metabolite NEG Urine Marijuana (THC) NEG POC Glucose 186 306 Total Time Total Time Spent (min): Greater than 30 minutes Total Time Included: examination of the patient, discharge planning, medication reconciliation, communication with other providers Tobacco Cessation at Discharge Smoking Status: Former Smoker FDA approved Prescription: non-smoker Problem Qualifiers (1) Major depressive disorder, recurrent episode: Major depression episode severity: severe Psychotic features: without psychotic features Qualified Codes: F33.2 - Major depressive disorder, recurrent severe without psychotic features
== END 2017-11-16 10:25 | disposition home or self-care (01) | DRG 885 ==
LOC: C.EDB 13:30 → C.MHU 17:01
PROVIDERS: ADMIT Psychiatry & Neurology Psychiatry; ATTEND Psychiatry & Neurology Psychiatry
DX: F33.2 Major depressive disorder, recurrent severe without psychotic features (principal); R45.851 Suicidal ideations; F41.9 Anxiety disorder, unspecified; E10.9 Type 1 diabetes mellitus without complications; E03.9 Hypothyroidism, unspecified; Z79.4 Long term (current) use of insulin; Z79.899 Other long term (current) drug therapy; Z87.891 Personal history of nicotine dependence

== ENCOUNTER 2017-12-01 11:07 | Emergency (ER) | payer OTHER ==
[~2017-12-01] VITALS: Ht 162.6 cm; Wt 47.0 kg
[~2017-12-01 11:07] MED LIST changes: +ATR25 PO; -GLGKIT SQ; +INSDGIPEN SC; -LVMI PO; -NVLGI SC; +NVLGIPEN SC; +SERT-234 PO
[2017-12-01 11:21] VITALS: TEMP 36.4; Ht 162.6 cm; Wt 47.0 kg
[2017-12-01] MEDS ORDERED: INSDGIPEN SC (13:17)
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
[2017-12-01 14:31] VITALS: BP 128/85; PULSE 100; O2SAT 98
[2017-12-01] MEDS ORDERED: HYDR-5688 PO (14:34)
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
== END 2017-12-01 14:47 | disposition home or self-care (01) ==
LOC: C.EDB 11:09 → C.EDD 14:47
DX: S32.029A Unspecified fracture of second lumbar vertebra, initial encounter for closed fracture (principal); S32.039A Unspecified fracture of third lumbar vertebra, initial encounter for closed fracture; X50.9XXA Other and unspecified overexertion or strenuous movements or postures, initial encounter; Y09 Assault by unspecified means; F41.9 Anxiety disorder, unspecified; F32.9 Major depressive disorder, single episode, unspecified; E03.9 Hypothyroidism, unspecified; E11.9 Type 2 diabetes mellitus without complications; Z88.8 Allergy status to other drugs, medicaments and biological substances

== ENCOUNTER 2017-12-17 18:08 | Emergency (ER) | payer OTHER ==
[~2017-12-17] VITALS: Ht 162.6 cm; Wt 48.8 kg
[~2017-12-17 18:08] MED LIST changes: +HYDR-5688 PO
[2017-12-17 18:19] VITALS: BP 129/86; PULSE 110; TEMP 36.7; O2SAT 96; Ht 162.6 cm; Wt 48.8 kg
[2017-12-17] MEDS ORDERED: HYDR-5688 PO (19:14)
[2017-12-17] MEDS ORDERED: NORCO 5/325MG HOME PACK PO ONE (19:15)
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
== END 2017-12-17 19:23 | disposition home or self-care (01) ==
LOC: C.EDB 18:11 → C.EDD 19:23
DX: S32.039D Unspecified fracture of third lumbar vertebra, subsequent encounter for fracture with routine healing (principal); S32.029D Unspecified fracture of second lumbar vertebra, subsequent encounter for fracture with routine healing; X58.XXXD Exposure to other specified factors, subsequent encounter; F41.9 Anxiety disorder, unspecified; E03.9 Hypothyroidism, unspecified; F32.9 Major depressive disorder, single episode, unspecified; E10.9 Type 1 diabetes mellitus without complications; Z87.440 Personal history of urinary (tract) infections; F17.210 Nicotine dependence, cigarettes, uncomplicated; Z79.4 Long term (current) use of insulin; Z79.899 Other long term (current) drug therapy

== ENCOUNTER 2018-01-11 14:46 | Emergency (ER) | payer OTHER ==
[~2018-01-11] VITALS: Ht 162.6 cm; Wt 54.6 kg
[2018-01-11 15:00] VITALS: TEMP 36.8; Ht 162.6 cm; Wt 54.6 kg
[2018-01-11 16:12] LABS: BASO % 0.6 %; BASO ABS # 0.04 K/uL (0-0.2); EOS % 1.1 %; EOS ABS # 0.07 K/uL (0-0.5); HEMATOCRIT 41.9 % (37-47); HEMOGLOBIN 14.6 g/dL (12.0-16.0); IG# 0.05 K/uL (0.00-0.02); LYMPH % 29.3 %; LYMPH ABS # 1.91 K/uL (1.2-3.4); MEAN CELL VOLUME 99.5 fL (80-100); MEAN CORPUSCULAR HEMOGLOBIN 34.7 pg (25-34); MEAN CORPUSCULAR HGB CONC 34.8 g/dl (32-36); MEAN PLATELET VOLUME 11.2 fL (7.4-10.4); MONO % 8.1 %; MONO ABS # 0.53 K/uL (0.11-0.59); NEUT % 60.1 %; NEUT ABS # 3.92 K/uL (1.4-6.5); PLATELET COUNT 258 K/uL (130-400); RED CELL DISTRIBUTION WIDTH SD 47.2 fL (36.4-46.3); WHITE BLOOD COUNT 6.52 K/uL (4.8-10.8)
[2018-01-11 16:20] LABS: ALBUMIN 3.3 gm/dl (3.4-5.0); BLOOD UREA NITROGEN 17 mg/dl (7-18); CARBON DIOXIDE 23 mmol/L (21-32); CREATININE 0.75 mg/dl (0.60-1.20); GLUCOSE 109 mg/dl (70-99); POTASSIUM 3.8 mmol/L (3.5-5.1); SODIUM 138 mmol/L (136-145)
[2018-01-11 16:31] LABS: ALKALINE PHOSPHATASE 91 U/L (45-117); ALT/SGPT 28 U/L (12-78); AST/SGOT 11 U/L (15-37); TOTAL PROTEIN 6.7 gm/dl (6.4-8.2)
--- NOTE | 2018-01-11 18:11 | EMERGENCY ROOM VISIT NOTE ---
History Report prepared by Amanda: Brianna Liu Under the Supervision of: Dr. Magnus Meza D.O. First contact with patient: 15:02 Chief Complaint: MENTAL HEALTH EVALUATION Stated Complaint: SUICIDAL, PANIC ATTACKS History of Present Illness The patient is a 32 year old female who presents to the Emergency Room for a mental health evaluation. The patient reports she has been feeling suicidal for the past couple weeks. The patient reports she has been researching different suicide plans. She reports she was planning on a insulin overdose. The patient is a type one diabetic. She states her mom made her come into the ED. The patient has a history of anxiety and depression. The patient's last menstrual period was a month ago. Pt denies headache, change in vision, fevers, chest pain , shortness of breath, nausea, vomiting, diarrhea, pain with urination, and melena. Source of History: patient Position: other (generalized) Quality: other (suicidal thoughts) Timing: constant Modifying Factors (Relieving): other (none) Associated Symptoms: No fevers, No headache, No chest pain, No SOB, No nausea, No vomiting, No diarrhea, No urinary symptoms Review of Systems See HPI for pertinent positives & negatives. A total of 10 systems reviewed and were otherwise negative. Past Medical & Surgical Medical Problems: (1) Anxiety disorder NOS (2) DIAB CHILO WO COMPL, TYPE I [JUVENILE TYPE], NOT UNCNTRLD (3) DIAB W KETOACIDOSIS, TYPE I [JUVENILE TYPE], UNCONTROLLED (4) Hypothyroidism (5) Major depressive disorder (6) Major depressive disorder, recurrent episode (7) Substance abuse (8) Type 1 diabetes mellitus (9) URIN TRACT INFECTION NOS Family History FH: cancer Hypertension Kidney disease or stones Social History Smoking Status: Current Every Day Smoker Alcohol Use: none Drug Use: none Marital Status: in relationship Housing Status: lives with significant other Occupation Status: unemployed Current/Historical Medications Scheduled Insulin Aspart (Novolog Flexpen), 1 UNITS SC ACHS Insulin Glargine (Lantus Solostar), 15 UNITS SC QAM Levothyroxine Sodium (Levothyroxine Sodium), 100 MCG PO 6XWK Sertraline (Zoloft), 150 MG PO DAILY Scheduled PRN Hydrocodone/Acetaminophen 5MG/325MG ([place] 5MG/325MG), 1-2 TABLET PO Q6H PRN for Pain Hydrocodone/Acetaminophen 5MG/325MG ([place] 5MG/325MG), 1-2 TABLET PO Q4H PRN for Pain Hydroxyzine HCl (Hydroxyzine HCl), 25 MG PO Q8 PRN for Anxiety Allergies Coded Allergies: Sulfamethoxazole w/Trimethoprim (Unverified Allergy, Unknown, swelling, 01/11/18) Insulin Lispro (Verified Adverse Reaction, Intermediate, MUSCLE WASTING, ) Phenol (Unverified Adverse Reaction, Unknown, Muscle Wasting, 01/11/18) Physical Exam Vital Signs Date Time Temp Pulse Resp B/P (MAP) Pulse Ox O2 Delivery O2 Flow Rate FiO2 01/11/18 16:45 98 18 105/81 97 Room Air 01/11/18 15:00 36.8 101 18 121/81 97 Room Air Physical Exam GENERAL: Sitting up in bed, alert, truly disheveled chronically ill appearing, well nourished, no distress, non-toxic EYE EXAM: normal conjunctiva. OROPHARYNX: no exudate, no erythema, lips, buccal mucosa, and tongue normal and mucous membranes are moist NECK: supple, no nuchal rigidity, no adenopathy, non-tender LUNGS: Clear to auscultation. Normal chest wall mechanics HEART: no murmurs, S1 normal and S2 normal ABDOMEN: abdomen soft, non-tender, normo-active bowel sounds, no masses, no rebound or guarding. BACK: Back is symmetrical on inspection and there is no deformity, no midline tenderness, no CVA tenderness. SKIN: no rashes and no bruising UPPER EXTREMITIES: upper extremities are grossly normal. LOWER EXTREMITIES: No pitting edema. NEURO EXAM: Normal sensorium PSYCH: Admits to suicidal ideations with a plan to overdose on insulin. Medical Decision & Procedures Laboratory Results 01/11/18 15:44 Red Blood Count 4.21, Mean Corpuscular Volume 99.5, Mean Corpuscular Hemoglobin 34.7, Mean Corpuscular Hemoglobin Concent 34.8, Mean Platelet Volume 11.2, Neutrophils (%) (Auto) 60.1, Lymphocytes (%) (Auto) 29.3, Monocytes (%) (Auto) 8.1, Eosinophils (%) (Auto) 1.1, Basophils (%) (Auto) 0.6, Neutrophils # (Auto) 3.92, Lymphocytes # (Auto) 1.91, Monocytes # (Auto) 0.53, Eosinophils # (Auto) 0.07, Basophils # (Auto) 0.04 01/11/18 15:44 Test 01/11/18 15:20 01/11/18 15:44 01/11/18 17:05 Urine Color YELLOW Urine Appearance CLEAR (CLEAR) Urine pH 5.5 (4.5-7.5) Urine Specific [place] 1.043 (1.000-1.030) Urine Protein NEG (NEG) Urine Glucose (UA) 3+ (NEG) Urine Ketones TRACE (NEG) Urine Occult Blood NEG (NEG) Urine Nitrite NEG (NEG) Urine Bilirubin NEG (NEG) Urine Urobilinogen NEG (NEG) Urine Leukocyte Esterase NEG (NEG) Urine Test NEG (NEG) Urine Opiates Screen NEG (NEG) Urine Methadone, Qualitative NEG (NEG) Urine Barbiturates NEG (NEG) Urine Phencyclidine (PCP) Level NEG (NEG) Ur Amphetamine/Methamphetamine NEG (NEG) MDMA (Ecstasy) Screen NEG (NEG) Urine Benzodiazepines Screen NEG (NEG) Urine Cocaine Metabolite NEG (NEG) Urine Marijuana (THC) NEG (NEG) White Blood Count 6.52 K/uL (4.8-10.8) Red Blood Count 4.21 M/uL (4.2-5.4) Hemoglobin 14.6 g/dL (12.0-16.0) Hematocrit 41.9 % (37-47) Mean Corpuscular Volume 99.5 fL (80-100) Mean Corpuscular Hemoglobin 34.7 pg (25-34) Mean Corpuscular Hemoglobin Concent 34.8 g/dl (32-36) Platelet Count 258 K/uL (130-400) Mean Platelet Volume 11.2 fL (7.4-10.4) Neutrophils (%) (Auto) 60.1 % Lymphocytes (%) (Auto) 29.3 % Monocytes (%) (Auto) 8.1 % Eosinophils (%) (Auto) 1.1 % Basophils (%) (Auto) 0.6 % Neutrophils # (Auto) 3.92 K/uL (1.4-6.5) Lymphocytes # (Auto) 1.91 K/uL (1.2-3.4) Monocytes # (Auto) 0.53 K/uL (0.11-0.59) Eosinophils # (Auto) 0.07 K/uL (0-0.5) Basophils # (Auto) 0.04 K/uL (0-0.2) RDW Standard Deviation 47.2 fL (36.4-46.3) RDW Coefficient of Variation 13.0 % (11.5-14.5) Immature Granulocyte % (Auto) 0.8 % Immature Granulocyte # (Auto) 0.05 K/uL (0.00-0.02) Anion Gap 10.0 mmol/L (3-11) Est Creatinine Clear Calc Drug Dose 94.5 ml/min Estimated GFR () 124.0 Estimated GFR (Non- 107.0 BUN/Creatinine Ratio 22.0 (10-20) Calcium Level 9.0 mg/dl (8.5-10.1) Total Bilirubin 0.2 mg/dl (0.2-1) Direct Bilirubin < 0.1 mg/dl (0-0.2) Aspartate Amino Transf (AST/SGOT) 11 U/L (15-37) Alanine Aminotransferase (ALT/SGPT) 28 U/L (12-78) Alkaline Phosphatase 91 U/L (45-117) Total Protein 6.7 gm/dl (6.4-8.2) Albumin 3.3 gm/dl (3.4-5.0) Thyroid Stimulating Hormone (TSH) 2.010 uIu/ml (0.300-4.500) Ethyl Alcohol mg/dL < 3.0 mg/dl (0-3) Bedside Glucose 102 mg/dl (70-90) Laboratory results per my review. ED Course ED COURSE: Vital signs were reviewed and showed normal The patients medical record was reviewed The above diagnostic studies were performed and reviewed. ED treatments and interventions as stated above. 1505: The patient was evaluated in room A8. A complete history and physical examination was performed. 1800: The patient was signed out to Dr. Boyer at the change of shifts. Medical Decision Differential diagnosis: Etiologies such as mood disorder, infection, hypoglycemia, electrolyte abnormalities, cardiac sources, intracerebral event, toxicologic, neurologic, as well as others were entertained. Patient is a 32-year-old female who is a type I diabetic that presents to ER with depression and anxiety. She admits to suicidal ideations with a clear plan to overdose on her insulin. She has no physical complaints at this time. CBC along with BMP, LFTs, bilirubin and TSH were unremarkable. Initial BSG was only slightly low in the 90s. She was given some to eat and drink and is completely resolved. Urine tox is negative. Alcohol negative. negative. Patient remained stable in the ER. She admits to having a clear plan to kill herself and acknowledges that she was doing research online on how to do this. She is agreeable on a 201. Bed search is currently being performed. Patient was signed out to Dr. Boyer awaiting placement. Medication Reconcilliation Current Medication List: was personally reviewed by me Blood Pressure Screening Patient's blood pressure: Normal blood pressure Impression Primary Impression: Mood disorder Additional Impression: Suicidal ideation Scribe Attestation The scribe's documentation has been prepared under my direction and personally reviewed by me in its entirety. I confirm that the note above accurately reflects all work, treatment, procedures, and medical decision making performed by me. Departure Information Dispostion Still a Patient Referrals No Doctor, Assigned (PCP) Forms HOME CARE DOCUMENTATION FORM, IMPORTANT VISIT INFORMATION Patient Instructions My [facility] Problem Qualifiers
--- NOTE | 2018-01-11 19:07 | EMERGENCY ROOM VISIT NOTE ---
ED Visit Note First contact with patient: 18:02 I assumed care at the change of shift, Dr. Meza had been the physician just prior to me. The patient had presented with suicidal ideation. She had a plan to overdose on her insulin. She was felt medically clear. She was voluntary. A bed search was performed and she has been accepted at [facility]. She has been cooperative during the time she has been under my care. The paperwork for transfer was signed.
[2018-01-11 20:29] VITALS: BP 120/77; PULSE 95; O2SAT 98
[2018-01-11] MEDS ORDERED: NovoLIN-R INSULIN PER UNIT CHARGE SC STA (20:44)
[2018-01-11] MEDS ORDERED: NovoLIN-R INSULIN PER UNIT CHARGE ONE (20:46)
--- NOTE | 2018-01-11 20:46 | EMERGENCY ROOM VISIT NOTE ---
ED Visit Note First contact with patient: 18:02 Just prior to the patient leaving for [facility], her blood sugar was noted to be over 400. As per her sliding scale she would typically take 12 units of regular subcu insulin. As she is traveling over an hour, I felt that decreasing the dose slightly would be more reasonable. She was given 10 units of regular insulin subcu.
== END 2018-01-11 20:52 ==
LOC: C.EDB 14:52 → C.EDA 20:52
DX: F39 Unspecified mood [affective] disorder (principal); R45.851 Suicidal ideations; F41.9 Anxiety disorder, unspecified; E10.9 Type 1 diabetes mellitus without complications; E03.9 Hypothyroidism, unspecified; F32.9 Major depressive disorder, single episode, unspecified; Z82.49 Family history of ischemic heart disease and other diseases of the circulatory system; F17.200 Nicotine dependence, unspecified, uncomplicated; Z79.4 Long term (current) use of insulin; Z88.8 Allergy status to other drugs, medicaments and biological substances